=== PATIENT | male | born 1955 | race Caucasian/White ===

== ENCOUNTER 2018-05-02 09:37 | Outpatient (REF) | payer MEDICARE, SELFPAY ==
[2018-05-05 12:22] LABS: Testosterone, Free 2.18 ng/dL (3.67-13.9); Testosterone, Total 78 ng/dL (240-950)
== END 2018-05-02 09:57 ==
LOC: NCHCN 09:37
PROVIDERS: PCP Internal Medicine; Visit Provider Internal Medicine
DX: E23.0 Hypopituitarism (principal)
CPT/HCPCS: 84402; 84403

== ENCOUNTER 2018-06-27 15:44 | Outpatient (REF) | payer MEDICARE, SELFPAY ==
[2018-06-27 22:19] LABS: Potassium 3.6 mmol/L (3.5-5.1)
[2018-06-29 11:25] LABS: Hepatitis C Ab w Rflx HCV PCR Negative (NEGAT)
[2018-07-02 08:09] LABS: Testosterone, Total 175 ng/dL (240-950)
== END 2018-06-27 16:04 ==
LOC: NCHCN 15:44
PROVIDERS: PCP Internal Medicine; Visit Provider Internal Medicine
DX: I10 Essential (primary) hypertension (principal); Z11.59 Encounter for screening for other viral diseases; Z79.899 Other long term (current) drug therapy
CPT/HCPCS: 84403; 86803; 84132

== ENCOUNTER 2019-01-10 14:17 | Outpatient (REF) | payer MEDICARE, SELFPAY ==
[2019-01-10 21:24] LABS: HCT 38.2 % (40.0-50.0); Mean Corpuscular Hemoglobin 28.7 pg (27.0-33.0); Mean Corpuscular Volume 84.3 fL (80-95); Mean Platelet Volume 10.9 fL (8.0-11.0); Platelet Count 197 x1000/uL (130-400); RBC 4.53 m/cumm (4.50-6.00); RBC Distribution Width 13.3 % (11.8-14.1); White Blood Cell Count 5.82 k/cumm (4.4-10.8)
[2019-01-10 22:14] LABS: ALT 31 U/L (12-78); AST 21 U/L (15-37); Alkaline Phosphatase 76 U/L (46-116); Anion Gap 14.1 mmol/L (3-11); BUN 17 mg/dL (7-18); Bilirubin, Total 0.5 mg/dL (0.2-1.0); CO2 24.9 mmol/L (21.0-32.0); CREATININE 1.04 mg/dL (0.70-1.30); Chloride 101 mmol/L (98-107); Glucose 110 mg/dL (70-100); Potassium 3.8 mmol/L (3.5-5.1); Sodium 140 mmol/L (136-145); TSH 1.51 uIU/mL (0.358-3.74); Total Protein 7.1 g/dL (6.4-8.2); Vitamin B12 270 pg/mL (193-986)
[2019-01-10 22:34] LABS: Calcium 8.9 mg/dL (8.5-10.1)
== END 2019-01-10 14:37 ==
LOC: NCHCN 14:17
PROVIDERS: PCP Internal Medicine; Visit Provider Internal Medicine
DX: I10 Essential (primary) hypertension (principal); R53.83 Other fatigue; Z98.84 Bariatric surgery status
CPT/HCPCS: 80053; 85027; 82607; 84443

== ENCOUNTER 2019-02-19 16:06 | Emergency (ER) | payer MEDICARE, SELFPAY ==
[2019-02-19 16:17] VITALS: BP 124/59; PULSE 60; RESP 16; TEMP 36.8; O2SAT 96
--- NOTE | 2019-02-19 16:29 | DI.RAD_ITS ---
SYMPTOM/DIAGNOSIS: DISTAL THIRD PUNCTURE WOUND LEFT LEG: No foreign body is demonstrated. No localized soft tissue mass is seen. There is no evidence of a fracture or dislocation. The patient is status post TKA.
--- NOTE | 2019-02-19 16:30 | ED.GENADUL_ITS ---
Discharge Plan Disposition Patient Disposition: HOME Condition: Improving Discharge Details Chief Complaint: Laceration Clinical Impression: Puncture wound of left lower leg Primary Care Provider: Shankar Saleh ED Provider: Malik Franks Home Meds and New Rx's Prescriptions: New cephalexin 500 mg tablet 500 mg PO TID Qty: 21 RF: 0 Continued ibuprofen 200 MG tablet 800 mg PO AM RF: 0 terazosin 2 MG capsule 2 mg PO HS RF: 0 losartan 100 MG tablet 100 mg PO DAILY RF: 0 fluticasone propionate [Flonase Allergy Relief] 9.9 ML spray,suspension 9.9 ml NS DAILY RF: 0 metformin [Fortamet] 500 MG tablet extended release 24hr 500 mg PO DAILY RF: 0 DIPROLENE LOTION 0.05 % Topical PRN RF: 0 Discharge Instructions Instructions: Puncture Wound (ED) Additional Instructions: The dressing in place for approximately 48 hours. Then once daily soap and water cleanse, pat dry, replace dressing. Take antibiotics as prescribed. Elevate the leg to reduce pain and swelling. May use Tylenol if needed for discomfort. Return for fever, redness, foul-smelling discharge from the wound or any other acute concern Medical Decision Making 63-year-old male presents following puncture wound to the left lower extremity well working in the [employer]. He is a diabetic, otherwise healthy and tetanus is up-to-date. Wound irrigated, explored in a bloodless field without evidence of foreign body. Referred for x-ray which does not reveal fracture. There is a medial, mid tibia foreign body that is not match the patient's clinical presentation for which he explains is from his youth. No indication for incision and drainage which I discussed with he and his . Will place on a course of cephalexin. He understands homecare, follow-up, return precautions HPI General Mode of arrival: ambulatory . Date/Time Provider Initiated Documentation: 02/19/19 16:08 . Limitations to Documentation: no limitations . Information obtained by: patient and family . History of Present Illness 63 year old M presents to the emergency department with the chief complaint of Lef t lower extremity puncture wound., described as moderate, Quality is described as dull and constant, and is localized to the left. Patient reports no radiation. Patient started experiencing this hour(s) and it has been constant. No relieving factors improve symptom(s), No exacerbating factors reported . Patient notes no other symptoms. and other (No numbness or tingling at time of exam). Patient did receive the following treatments prior to arrival, none Related Data Home Medications Medication Instructions Recorded Confirmed Diprolene Lotion 0.05 % TOPICAL PRN 09/06/15 02/19/19 fluticasone propionate [Flonase 9.9 ml NS DAILY 09/06/15 02/19/19 Allergy Relief] ibuprofen 800 mg PO AM tab-cap 09/06/15 02/19/19 losartan 100 mg PO DAILY tab-cap 09/06/15 02/19/19 metformin [Fortamet] 500 mg PO DAILY tab-cap 09/06/15 02/19/19 terazosin 2 mg PO HS tab-cap 09/06/15 02/19/19 cephalexin 500 mg PO TID #21 tab 02/19/19 Previous Rx's Medication Instructions Recorded cephalexin 500 mg PO TID #21 tab 02/19/19 Allergies Allergy/AdvReac Type Severity Reaction Status Date / Time pravastatin Allergy Intermediate Unverified 02/19/19 16:20 lisinopril Allergy Mild Unverified 02/19/19 16:20 aspirin Allergy Unknown Unverified 02/19/19 16:20 General Stated Complaint: Laceration NATHAN: 3 Review of Systems Review of Systems No numbness or tingling, no weakness. Tetanus up-to-date 2011. Otherwise well. 6 systems reviewed and negative [facility] Medical History Carpal tunnel syndrome on both sides Diabetes mellitus Hypertension Obesity Osteoarthritis of neck Surgical History Gastric Bypass Social History Smoking/Tobacco Use Status: Never Drug use: Never Exam Narrative Exam Narrative: GEN: awake, alert, oriented 3. Pleasant, well groomed, interactive. HEAD: Normocephalic, atraumatic ENT: Mucous membranes moist, oropharynx unremarkable, External ear exam unremarkable EYES: PERRL, EOMI NECK: Full ROM, no SEVERINO, no menigismus CHEST/RESP: Nontender, clear to auscultation bilateral, no wheeze/rhonchi/rales CARDIOVASCULAR: RRR, no murmur, rub scar. 2+ Rad pulse bilateral EXT: Full ROM, no edema, no rash. Left distal third anterior tibia with 5 mm puncture wound. No foreign body seen. Distal sensation, motor, vascular intact with 2+ DP Neuro: Grossly normal neurologic exam, conversant, interactive. Psych: Speech fluent, thoughts congruent, affect normal Course Vital Signs Temperature 36.8 C 02/19/19 16:17 Pulse 60 02/19/19 16:17 Respiratory Rate 16 02/19/19 16:17 Blood Pressure 124/59 L 02/19/19 16:17 Pulse Oximetry 96 02/19/19 16:17 Temperature 36.8 C 02/19/19 16:17 Temperature Source Skin 02/19/19 16:17 Pulse 60 02/19/19 16:17 Respiratory Rate 16 02/19/19 16:17 Respiratory Effort Non-Labored 02/19/19 16:17 Blood Pressure 124/59 L 02/19/19 16:17 Blood Pressure Position Sitting 02/19/19 16:17 Pulse Oximetry 96 02/19/19 16:17 Oxygen Delivery Method Room Air 02/19/19 16:17 Oxygen Flow Rate 0 02/19/19 16:17 Pain Level 4 02/19/19 16:17
--- NOTE | 2019-02-19 17:12 | DI.VRAD_ITS ---
EXAM: XR Left Tibia and Fibula EXAM DATE/TIME: 02/19/2019 4:31 PM CLINICAL HISTORY: 63 years old, male; Pain; Left; Patient HX: Puncture wound from a stick, distal lower leg. TECHNIQUE: Imaging protocol: XR Left tibia and fibula. Views: 2 views. COMPARISON: No relevant prior studies available. FINDINGS: Bones/joints: There is a total knee per se cyst without dislocation. There is no acute fracture or dislocation. Soft tissues: There is no radiopaque foreign body.There is no gas in the soft tissue. Vasculature: There are multiple phleboliths throughout the lower leg. IMPRESSION: No evidence of radiopaque foreign body or abscess. Dictated and Authenticated by: Timi Caputo MD. Ordering:HITESH Gan MD
== END 2019-02-19 17:00 | disposition home or self-care (01) ==
PROVIDERS: Emergency Provider Emergency Medicine; PCP Internal Medicine
DX: S81.832A Puncture wound without foreign body, left lower leg, initial encounter (principal); I10 Essential (primary) hypertension; E11.9 Type 2 diabetes mellitus without complications; Z79.84 Long term (current) use of oral hypoglycemic drugs
CPT/HCPCS: 99283; 73590

== ENCOUNTER 2020-01-20 08:29 | Outpatient (REF) | payer OTHER, SELFPAY ==
[2020-01-20 20:41] LABS: HCT 38.4 % (40.0-50.0); HGB 13.1 g/dL (13.5-17.5); Mean Corp. HGB Concentration 34.1 g/dL (32.0-36.0); Mean Corpuscular Hemoglobin 29.1 pg (27.0-33.0); Mean Corpuscular Volume 85.3 fL (80-95); Mean Platelet Volume 10.6 fL (8.0-11.0); Platelet Count 231 x1000/uL (130-400); RBC Distribution Width 12.8 % (11.8-14.1)
[2020-01-20 21:16] LABS: Anion Gap 9.1 mmol/L (3-11); BUN 19 mg/dL (7-18); CO2 28.9 mmol/L (21.0-32.0); CREATININE 1.16 mg/dL (0.70-1.30); Calcium 8.7 mg/dL (8.5-10.1); Calculated LDL 107 mg/dL (<100); Chloride 102 mmol/L (98-107); Cholesterol 162 mg/dL (<200); Glucose 130 mg/dL (74-106); HDL Cholesterol 36 mg/dL (40-60); Magnesium 2.2 mg/dL (1.8-2.4); Potassium 4.3 mmol/L (3.5-5.1); Sodium 140 mmol/L (136-145); Triglyceride 98 mg/dL (<150)
[2020-01-20 22:21] LABS: Hemoglobin A1C 6.5 % (3.8-5.6)
== END 2020-01-20 08:49 ==
LOC: NCHCN 08:29
PROVIDERS: PCP Internal Medicine; Visit Provider Internal Medicine
DX: I10 Essential (primary) hypertension (principal); E11.9 Type 2 diabetes mellitus without complications; E78.6 Lipoprotein deficiency; E66.9 Obesity, unspecified
CPT/HCPCS: 80048; 80061; 85027; 83036; 83735

== ENCOUNTER 2020-03-01 14:18 | Outpatient (REF) | payer OTHER, SELFPAY ==
[2020-03-08 12:08] LABS: Testosterone, Free 4.58 ng/dL (3.67-13.9); Testosterone, Total 183 ng/dL (240-950)
== END 2020-03-01 14:38 ==
LOC: NCHCN 14:18
PROVIDERS: PCP Internal Medicine; Visit Provider Internal Medicine
DX: E23.0 Hypopituitarism (principal)
CPT/HCPCS: 84402; 84403

== ENCOUNTER 2020-04-14 13:35 | Outpatient (CLI) | payer OTHER, SELFPAY ==
--- NOTE | 2020-04-14 13:57 | DI.RAD_ITS ---
EXAM: XR CERVICAL SPINE COMP 4-5V CLINICAL HISTORY: LT CERVICAL RADICULOPATHY, M54.12. TECHNIQUE: 2D digital imaging was performed. COMPARISON: No exams were available for comparison FINDINGS: The odontoid is intact. The lateral masses are well aligned. There is straightening of the normal c ervical lordosis. Disc space narrowing is seen at C5-6 and C6-C7. There are endplate osteophytes fr om C3-4 through C6-C7. Degenerative changes of the facets are noted. Moderate neural foraminal narr owing is seen on the right at C3-4 through C5-C6. Moderate narrowing is seen on the left at C3-4, C5 -C6 and C6-C7. No acute fracture or subluxation. The prevertebral soft tissues are unremarkable. T he lung apices are clear. Vascular calcifications are seen in the soft tissues. IMPRESSION: Moderate cervical spondylosis. DATA REPOSITORY: RADIATION DOSE DELIVERED:
== END 2020-04-14 13:55 ==
PROVIDERS: PCP Internal Medicine; Visit Provider Internal Medicine
DX: M47.22 Other spondylosis with radiculopathy, cervical region (principal)
CPT/HCPCS: 72050

== ENCOUNTER 2020-06-25 22:16 | Outpatient (REF) | payer OTHER, SELFPAY ==
[2020-06-29 10:13] LABS: COVID-19 RT-PCR Result NEGATIVE (Negative)
== END 2020-06-25 22:36 ==
LOC: NCHCN 22:16
PROVIDERS: PCP Internal Medicine; Visit Provider Internal Medicine
DX: Z20.828 Contact with and (suspected) exposure to other viral communicable diseases (principal)
CPT/HCPCS: U0003

== ENCOUNTER 2020-07-05 21:17 | Outpatient (REF) | payer OTHER, SELFPAY ==
[2020-07-05 21:23] LABS: Abs Immature Grans 0.01 10^3/uL (0.0-0.06); Absolute Basophil Count 0.05 10^3/uL (0.0-0.2); Absolute Eosinophil Count 0.17 10^3/uL (0.0-0.7); Absolute Lymphocyte Count 1.85 10^3/uL (1.2-3.4); Absolute Monocyte Count 0.49 10^3/uL (0.1-0.8); Absolute Neutrophil Count 4.37 10^3/uL (1.2-6.7); Basophils % 0.7; Eosinophils % 2.4; HCT 40.4 % (40.0-50.0); HGB 13.4 g/dL (13.5-17.5); Immature Grans % 0.1; Lymphocytes % 26.7; MCHC 33.2 % (32.0-36.0); MCV 81.5 fL (80-95); MPV 10.5 fL (8.0-11.0); Monocytes % 7.1; Nucleated RBC 0 %; Platelet Count 226 10^3/uL (130-400); RBC 4.96 10^6/uL (4.36-5.78); RDW 12.5 % (11.8-14.1); RDW-SD 36.4 fL; WBC 6.94 10^3/uL (4.4-10.8)
[2020-07-05 21:50] LABS: ALT 34 U/L (16-63); AST 22 U/L (15-37); Albumin 4.2 g/dL (3.4-5.0); Alkaline Phosphatase 71 U/L (46-116); Anion Gap 10.9 mmol/L (3-11); BUN 14 mg/dL (7-18); Bilirubin, Total 0.5 mg/dL (0.2-1.0); CO2 25.1 mmol/L (21.0-32.0); CREATININE 1.18 mg/dL (0.70-1.30); Calcium 8.8 mg/dL (8.5-10.1); Chloride 101 mmol/L (98-107); Glucose 131 mg/dL (74-106); Sodium 137 mmol/L (136-145); Total Protein 7.4 g/dL (6.4-8.2)
== END 2020-07-05 21:37 ==
LOC: NCHCN 21:17
PROVIDERS: PCP Internal Medicine; Visit Provider Internal Medicine
DX: R10.9 Unspecified abdominal pain (principal)
CPT/HCPCS: 80053; 85025

== ENCOUNTER → 2020-08-06 09:32 | Outpatient (REF) | payer OTHER, SELFPAY ==
[2020-08-11 10:58] LABS: Testosterone, Free 7.26 ng/dL (3.67-13.9); Testosterone, Total 191 ng/dL (240-950)
== END ==
LOC: NCHCN 09:32
PROVIDERS: PCP Internal Medicine; Visit Provider Internal Medicine
DX: E23.0 Hypopituitarism (principal)
CPT/HCPCS: 84402; 84403

== ENCOUNTER 2020-09-28 20:08 | Outpatient (REF) | payer OTHER, SELFPAY ==
[2020-10-01 15:11] LABS: Testosterone, Total 406 ng/dL (240-950)
== END 2020-09-28 20:09 | disposition home or self-care (01) ==
LOC: NCHCN 20:08
PROVIDERS: PCP Internal Medicine; Visit Provider Internal Medicine
DX: E23.0 Hypopituitarism (principal)
CPT/HCPCS: 84403

== ENCOUNTER 2020-10-15 03:50 | Outpatient (CLI) | payer OTHER, SELFPAY ==
[2020-10-15] MEDS: Barium Sulfate 60% W/V 355 ML BTL PO ×2 (10:20→10:56)
--- NOTE | 2020-10-15 10:20 | DI.RAD_ITS ---
EXAM: RF BARIUM SWALLOW CLINICAL HISTORY: DYSPHAGIA,R13.13 TECHNIQUE: COMPARISON: CR RF UGI SM BOWEL SERIES from 10/15/2020 FINDINGS: Preliminary films of the chest and neck show no specific abnormality. Barium was ingested and showed grossly normal esophageal motility except for few tertiary contraction s of the esophagus. Esophageal mucosa appears intact. No esophageal stricture. The patient has reportedly had a gastric bypass procedure. Small bowel fold pattern is unremarkable, slight nonspecific dilatation of portions of the duodenum small bowel shows essentially normal mucos al pattern to the level of the ileocecal valve. No evidence of obstruction. IMPRESSION: Negative barium swallow, upper GI series, and small-bowel follow-through in a patient who is status p ost gastric bypass procedure. RADIATION DOSE DELIVERED: Total DLP
== END 2020-10-15 04:10 ==
PROVIDERS: PCP Internal Medicine; Visit Provider Internal Medicine
DX: K22.4 Dyskinesia of esophagus (principal); R13.13 Dysphagia, pharyngeal phase; Z98.84 Bariatric surgery status
CPT/HCPCS: 74248; 74221; 74246

== ENCOUNTER 2020-11-15 09:36 | Outpatient (CLI) | payer OTHER, SELFPAY ==
--- NOTE | 2020-11-15 13:24 | DI.RAD_ITS ---
EXAM: XR RIBS LT W PA LAT CHEST CLINICAL HISTORY: RIB PAIN LT SIDED, R07.81 TECHNIQUE: 2D digital imaging was performed. COMPARISON: CR RF BARIUM SWALLOW from 10/15/2020 FINDINGS: There is a fracture of the left 10th rib. No other rib fractures identified. No pneumothorax. Lung s are clear. Heart size normal. Mediastinum not widened. IMPRESSION: 1. There is a minimally displaced fracture of the left 10th rib. 2. No ipsilateral lung nor pleural abnormality evident. No pneumothorax. DATA REPOSITORY: RADIATION DOSE DELIVERED:
== END 2020-11-15 09:56 ==
PROVIDERS: PCP Internal Medicine; Visit Provider Internal Medicine
DX: R07.81 Pleurodynia (principal); S22.32XA Fracture of one rib, left side, initial encounter for closed fracture
CPT/HCPCS: 71046; 71100

== ENCOUNTER 2021-03-31 16:04 | Outpatient (REF) | payer OTHER, SELFPAY ==
[2021-04-01 15:29] LABS: COVID-19 RT-PCR UVMMC Result Negative (Negative)
== END 2021-03-31 16:05 | disposition home or self-care (01) ==
LOC: NCHCN 16:04
PROVIDERS: PCP Internal Medicine; Visit Provider Internal Medicine
DX: Z20.822 Contact with and (suspected) exposure to COVID-19 (principal)
CPT/HCPCS: U0003

== ENCOUNTER 2021-08-09 14:56 | Outpatient (REF) | payer OTHER, SELFPAY ==
[2021-08-09 22:17] LABS: HCT 38.5 % (40.0-50.0); HGB 12.5 g/dL (13.5-17.5); MCH 25.6 pg (27.0-33.0); MCHC 32.5 % (32.0-36.0); MCV 78.9 fL (80-95); MPV 10.4 fL (8.0-11.0); Platelet Count 207 10^3/uL (130-400); RBC 4.88 10^6/uL (4.36-5.78); RDW 13.7 % (11.8-14.1); RDW-SD 39.3 fL; WBC 7.55 10^3/uL (4.4-10.8)
[2021-08-09 22:36] LABS: Anion Gap 9.8 mmol/L (3-11); BUN 25 mg/dL (7-18); CO2 26.2 mmol/L (21.0-32.0); CREATININE 1.3 mg/dL (0.70-1.30); Calcium 9.1 mg/dL (8.5-10.1); Chloride 101 mmol/L (98-107); Estimated GFR 55.58 (mL/min/1.73m2); Glucose 150 mg/dL (74-106); NT-proBNP 60 pg/mL (<300); Sodium 137 mmol/L (136-145)
[2021-08-09 22:43] LABS: Hemoglobin A1C 7.4 % (<5.7)
[2021-08-10 11:18] LABS: Iron 60 ug/dL (65-175); Total Iron Binding Capacity 371 ug/dL (250-450)
== END 2021-08-09 14:57 | disposition home or self-care (01) ==
LOC: NCHCN 14:56
PROVIDERS: PCP Internal Medicine; Visit Provider Internal Medicine
DX: E11.9 Type 2 diabetes mellitus without complications (principal); R06.09 Other forms of dyspnea; D50.9 Iron deficiency anemia, unspecified; I10 Essential (primary) hypertension; G47.30 Sleep apnea, unspecified; R05.3 Chronic cough
CPT/HCPCS: 80048; 85027; 83036; 83540; 83550; 83880

== ENCOUNTER 2021-08-12 00:40 | Outpatient (CLI) | payer MEDICARE, SELFPAY ==
--- NOTE | 2021-08-12 09:15 | DI.RAD_ITS ---
Exam(s) XR CHEST 2V PA LATERAL EXAM: XR CHEST 2V PA LATERAL CLINICAL HISTORY: CHRONIC COUGH, R05 TECHNIQUE: 2D digital imaging was performed. COMPARISON: CR XR RIBS LT W PA LAT CHEST from 11/15/2020 FINDINGS: MEDIASTINUM: Normal. HEART: Normal. PULMONARY VASCULATURE: Normal. LUNGS: Clear. PLEURAL SPACE: No pleural effusion or pneumothorax. BONE:Unremarkable for age. IMPRESSION: No acute abnormality. DATA REPOSITORY: RADIATION DOSE DELIVERED:
== END 2021-08-12 01:00 ==
PROVIDERS: PCP Internal Medicine; Visit Provider Internal Medicine
DX: R05.8 Other specified cough (principal)
CPT/HCPCS: 71046

== ENCOUNTER 2021-11-22 11:35 | Emergency (ER) | payer MEDICARE, SELFPAY ==
[2021-11-22 11:40] VITALS: BP 160/75; PULSE 70; RESP 17; TEMP 36.9; O2SAT 97
--- NOTE | 2021-11-22 11:49 | ED.GENADUL_ITS ---
Discharge Plan Disposition Patient Disposition: HOME Condition: Stable Discharge Details Clinical Impression: Pain and swelling of eyelid of right eye Primary Care Provider: Shankar Saleh ED Provider: Christy Ambrose Home Meds and New Rx's Prescriptions: Continued ibuprofen 200 MG tablet 800 mg PO AM 0RF terazosin 2 MG capsule 2 mg PO HS 0RF Label Comments: -PT STATES TAKING 2 TABS IN AM AND 1 TAB PM--DAVID GALVAN losartan 100 MG tablet 100 mg PO DAILY 0RF fluticasone propionate [Flonase Allergy Relief] 9.9 ML spray,suspension 9.9 ml NS DAILY 0RF metformin [Fortamet] 500 MG tablet extended release 24hr 800 mg PO DAILY 0RF Label Comments: 05/18/17-PT STATES NOT CURRENTLY TAKING--DAVID GALVAN DIPROLENE LOTION 0.05 % Topical PRN 0RF pantoprazole 40 mg tablet,delayed release (DR/EC) 40 mg PO DAILY 0RF Ozempic 0.25 mg or 0.5 mg(2 mg/1.5 mL) pen injector 0.25 mg SUBCUT QWEEK 0RF Label Comments: Inject 0.25 mg subcutaneously once a week Discharge Instructions Instructions: Cellulitis (ED), Blepharitis (ED) Additional Instructions: You may be developing an infection of the skin around your eye. It is recommended that you apply the erythromycin ointment within and around your eye 3 times daily for the next 7 days. Apply cool compresses to the eye several times daily for 20 minutes at a time. Called [facility] to schedule a follow-up appointment for reevaluation within the next few days. Return immediately to the emergency department if you develop any worsening or new concerning symptoms. Referrals: [facility] [Outside] Discharge Data Discharge Physician: Christy Ambrose Medical Decision Making 66-year-old male who presents with right eye discomfort, and right upper and lower eyelid swelling and redness for the past few days. Unknown injury. Vitals within normal limits. Patient appears comfortable and nontoxic. He has right upper and lower eyelid edema and erythema which is worse on the upper eyelid. He has minimal erythema and edema noted medial to the medial canthus. Fluorescein staining negative for corneal abrasion. No obvious foreign body noted on exam and with eyelid eversion. There appears to be most tenderness to palpation to the area of erythema and edema of the skin medial to the medial canthus and the upper eyelid. He has no significant pain with EOMI so do not suspect periorbital or orbital cellulitis. Will cover with topical antibiotic erythromycin ointment to use within the eye and on the outside of the skin. Will place patient on care management list to follow-up with [facility] eye care this week. Patient is advised to apply cool compresses to the area several times daily. Advised to avoid touching the eye. Advised to return here immediately if he develops any fever, worsening swelling, redness or pain with eye movement. Medical Records Medical records reviewed: Yes I reviewed the patient's medical records. HPI General Mode of arrival: ambulatory . Date/Time Provider Initiated Documentation: 11/22/21 11:47 . Limitations to Documentation: no limitations . Information obtained by: patient . HPI Narrative: Patient is a 66-year-old male who presents to the ED with complaint of right eye irritation for the past 2 days now with right eyelid swelling and redness. Patient states he awoke with the symptoms a few days ago. Patient states he is unsure if he got anything in his eye. He does admit to actual discomfort of the eye itself when touching his eyelid and in the skin medial to his eye when looking inward. He admits to occasional blurry vision but denies any fever, headache, dizziness, nausea or vomiting. Related Data Home Medications Medication Instructions Recorded Confirmed Diprolene Lotion 0.05 % TOPICAL PRN 09/06/15 02/19/19 fluticasone propionate 50 9.9 ml NS DAILY 09/06/15 02/19/19 mcg/actuation nasal spray,suspension (Flonase Allergy Relief) ibuprofen 200 mg tablet 800 mg PO AM tab-cap 09/06/15 02/19/19 losartan 100 mg tablet 100 mg PO DAILY tab-cap 09/06/15 02/19/19 metformin 500 mg tablet,extended 800 mg PO DAILY tab-cap 09/06/15 02/19/19 release 24hr (Fortamet) terazosin 2 mg capsule 2 mg PO HS tab-cap 09/06/15 02/19/19 pantoprazole 40 mg tablet,delayed 40 mg PO DAILY 11/22/21 11/22/21 release semaglutide (Ozempic) 0.25 mg SUBCUT QWEEK 11/22/21 11/22/21 Allergies Allergy/AdvReac Type Severity Reaction Status Date / Time pravastatin Allergy Intermediate Unverified 11/22/21 11:44 lisinopril Allergy Mild Unverified 11/22/21 11:44 aspirin Allergy Unknown Unverified 11/22/21 11:44 General Stated Complaint: EyeProblem NATHAN: 4 Review of Systems All systems reviewed & are unremarkable except as noted in HPI and below Constitutional Constitutional: Reports as per HPI, Denies chills, Denies excessive sweating, Denies fatigue, Denies fever(s) and Denies headache(s) Eyes Eyes: Reports blurry vision, Reports irritation and Reports eye pain ENT Ears, Nose, Mouth, and Throat: Denies dizziness, Denies headache(s), Denies sore throat and Denies throat swelling Cardiovascular Cardiovascular: Denies chest pain and Denies dyspnea Respiratory Respiratory: Denies cough and Denies dyspnea Gastrointestinal Gastrointestinal: Denies abdominal pain, Denies diarrhea, Denies nausea and Denies vomiting Genitourinary Genitourinary: Denies hematuria and Denies dysuria Musculoskeletal Musculoskeletal: Denies back pain and Denies numbness Integumentary/Breasts Skin/Breast: Denies lesions and Denies rash Neurologic Neurologic: Denies behavioral changes, Denies confusion, Denies dizziness, Denies headache(s), Denies localized weakness and Denies numbness Psychiatric Psychiatric: Denies behavioral changes, Denies confusion and Denies depression Endocrine Endocrine: Denies excessive sweating and Denies fatigue Hematologic/Lymphatic Hematologic/Lymphatic: Denies easy bruising and Denies lymphadenopathy Allergic/Immunologic Allergic/Immunologic: Denies throat swelling PFSH All Active Problems (Updated 11/22/21 @ 12:48 by Christy Ambrose DO) Pain and swelling of eyelid of right eye (Acute) Medical History (Updated 11/22/21 @ 12:48 by Christy Ambrose DO) Carpal tunnel syndrome on both sides Diabetes mellitus Hypertension Obesity Osteoarthritis of neck Surgical History Gastric Bypass Social History Smoking/Tobacco Use Status: Never Smoking risk assessment performed?: Yes Alcohol Intake: never Drug use: Never Substance use type: does not use Do you feel safe at home: Yes Do you feel safe in your relationship?: Yes Exam Const General: cooperative and no acute distress Orientation: alert, awake and oriented x3 HENMT Head: normal to inspection Ears: hearing grossly normal bilaterally and external ears normal General nose exam: external nose normal Face and sinus: normal facial exam Eyes General: appearance normal, both eyes and all related structures Pupils: PERRL EOM: EOM intact bilaterally Other: Right upper and lower eyelid mild to moderate edema and erythema, worse on the upper eyelid. There is erythema and edema noted just medial to the medial canthus. There is no significant tearing or yellow discharge. No significant conjunctival injection or obvious foreign body. Neck Neck: normal visual inspection Lymphatic: no lymphadenopathy noted Chest Chest: normal inspection of the chest Resp Effort & Inspection: normal respiratory effort and able to speak in complete sentences Auscultation: clear to auscultation bilaterally Cardio Rate: regular rate Rhythm: regular rhythm GI Inspection: normal to inspection Palpation: soft, not firm, no guarding, no hepatosplenomegaly, no masses and nontender Auscultation: normal bowel sounds Back/Spine/Pelvis Back: no CVA tenderness Skin General skin exam: no rashes or lesions noted Neuro General: patient alert and patient awake Cognition: normal cognition Speech: speech normal Gait: normal gait Motor: muscle tone normal throughout Sensory Exam: no sensory deficits noted Extrem General: normal to inspection, full ROM and capillary refill normal Psych Appearance: grossly normal Mental Status: mental status grossly normal Speech and Movement: speech and movement normal Affect: normal affect Thought Process: normal Course Vital Signs Vital signs: Vital Signs Temperature 98.4 F 11/22/21 11:40 Pulse 70 11/22/21 11:40 Respiratory Rate 17 11/22/21 11:40 Blood Pressure 160/75 H 11/22/21 11:40 Pulse Oximetry 97 11/22/21 11:40 Temperature 98.4 F 11/22/21 11:40 Temperature Source Temporal Artery Scan 11/22/21 11:40 Pulse 70 11/22/21 11:40 Respiratory Rate 17 11/22/21 11:40 Respiratory Effort Non-Labored 11/22/21 11:43 Blood Pressure 160/75 H 11/22/21 11:40 Blood Pressure Position Sitting 11/22/21 11:40 Pulse Oximetry 97 11/22/21 11:40 Oxygen Delivery Method Room Air 11/22/21 11:40 Oxygen Flow Rate 0 11/22/21 11:40 Pain Level 1 11/22/21 11:40
[2021-11-22] MEDS: Fluorescein STRIPS 100/BOX 1 MG (12:48)
[2021-11-22] MEDS: Tetracaine 0.5% 4 ML BTL (12:48)
[2021-11-22] MEDS: Erythromycin Ophth Oint 3.5 GM TUBE OU (13:00)
== END 2021-11-22 13:00 | disposition home or self-care (01) ==
PROVIDERS: Emergency Provider Physician Assistant; PCP Internal Medicine
DX: H57.11 Ocular pain, right eye (principal); H57.89 Other specified disorders of eye and adnexa
CPT/HCPCS: 99283

== ENCOUNTER 2021-12-15 16:37 | Outpatient (CLI) | payer MEDICARE, SELFPAY ==
--- NOTE | 2021-12-15 14:50 | DI.RAD_ITS ---
Exam(s) XR HIP RT COMPLETE AP PELVIS EXAM: XR HIP RT COMPLETE AP PELVIS CLINICAL HISTORY: OSTEOARTHRITIS RT HIP M16.11. TECHNIQUE: 2D digital imaging was performed of the right hip. Three images were obtained. AP pelvis and lateral right hip views were obtained. COMPARISON: CR RF UGI SM BOWEL SERIES from 10/15/2020 FINDINGS: BONES: No acute fracture is present. No bony destructive lesion is seen. JOINTS: No dislocation present. Mild degenerative changes are seen in the right hip with joint space narrowing subchondral cyst and acetabular spurring. SOFT TISSUE: Postsurgical changes are seen in the abdomen and pelvis. IMPRESSION: Mild degenerative changes of the right hip. DATA REPOSITORY: RADIATION DOSE DELIVERED:
== END 2021-12-15 16:57 ==
LOC: DI 16:39
PROVIDERS: PCP Internal Medicine; Visit Provider Internal Medicine
DX: M25.551 Pain in right hip (principal); M16.11 Unilateral primary osteoarthritis, right hip
CPT/HCPCS: 73502

== ENCOUNTER → 2022-02-06 10:11 | Outpatient (BNVA) | payer MEDICARE, SELFPAY | PROVIDERS: PCP Internal Medicine; Referring Provider Internal Medicine; Visit Provider Student in an Organized Health Care Education/Training Program | DX: M70.61 Trochanteric bursitis, right hip (principal); M16.11 Unilateral primary osteoarthritis, right hip | CPT/HCPCS: 99214 ==

== ENCOUNTER 2022-02-09 00:35 | Outpatient (CLI) | payer MEDICARE, SELFPAY ==
--- NOTE | 2022-02-09 08:15 | DI.RAD_ITS ---
Exam(s) RF JOINT INJECTION FLUORO GUID EXAM: RF JOINT INJECTION FLUORO GUID CLINICAL HISTORY: R HIP INJ UNDER FLUORO, PRIMARY OA RT HIP, TROCHANTERIC BURSITIS TECHNIQUE: Fluoroscopy provided. Radiologist not present. CONTRAST MATERIAL: None COMPARISON: No exams were available for comparison FINDINGS: Fluoroscopy was provided for therapeutic right hip injection. Submitted image(s) reveal intra-articular position of the needle Please refer to the procedure report for complete details. Cumulative Dose: Jamesr=18.9 mGy IMPRESSION: RADIATION DOSE DELIVERED:
[2022-02-09] MEDS: Bupivacaine 0.5% Pres-Free 30 ML VIAL 5 ML IJ (14:38)
[2022-02-09] MEDS: methylPREDNISolone ACETATE 80 MG/ML VIAL IM (14:38)
[2022-02-09] MEDS: Omnipaque 300 MG/ML 10 ML BTL IJ (14:39)
--- NOTE | 2022-02-09 14:47 | W.PROCNOTE ---
Date of service: 02/09/22 Time of Service: 14:47 Procedure Note Date of procedure: 02/09/22 Procedure: Right Hip Injection with Fluoroscopic Guidance Surgeon/Proceduralist/Physician: Ernie Bocanegra Procedure Diagnosis: Right Hip Osteoarthritis Procedure Indications: Ed has had persistent pain of the RIGHT hip and groin. Noninvasive measures have been tried. To serve as both diagnostic and therapeutic, an injection under fluoroscopy was recommended. I had discussed the risks of the procedure and the patient elected to proceed. Procedure Description: Ed was greeted in the flouroscopy room. The correct side was identified and the consent was reviewed with the patient and signed. The patient was then placed in the supine position on the fluoroscopy table. The RIGHT hip was then prepped with Chloraprep. The anterolateral injection starting point was identiifed by bony landmarks and fluoroscopy. The skin and soft tissue in the tract of the injection was anesthetized with 1% Lidocaine. A spinal needle was then inserted deep into the hip joint at the level of the lateral femoral neck under fluoroscopic guidance. A small amount of Omnipaque solution was injected to confirm intraarticular placement. Once confirmed, the hip was injected with 6cc of 0.5% Bupivicaine and 80mg of Depo-Medrol. A bandaid was placed on the injection site. The patient tolerated the procedure well.
== END 2022-02-09 00:55 ==
LOC: DI 00:35
PROVIDERS: PCP Internal Medicine; Visit Provider Student in an Organized Health Care Education/Training Program
DX: M16.11 Unilateral primary osteoarthritis, right hip (principal); M70.61 Trochanteric bursitis, right hip; M25.551 Pain in right hip
CPT/HCPCS: 20610; 77002; J1040

== ENCOUNTER 2022-05-01 15:02 | Outpatient (REF) | payer MEDICARE, SELFPAY ==
[2022-05-01 16:38] LABS: HCT 38.2 % (40.0-50.0); HGB 13.3 g/dL (13.5-17.5); MCH 29.4 pg (27.0-33.0); MCHC 34.8 % (32.0-36.0); MCV 84 fL (80-95); MPV 10.6 fL (8.0-11.0); Platelet Count 215 10^3/uL (130-400); RBC 4.53 10^6/uL (4.36-5.78); RDW 11.9 % (11.8-14.1); RDW-SD 36.1 fL; WBC 6.28 10^3/uL (4.4-10.8)
[2022-05-01 18:46] LABS: ALT 26 U/L (16-63); AST 18 U/L (15-37); Alkaline Phosphatase 70 U/L (46-116); Anion Gap 10.5 mmol/L (3-11); BUN 25 mg/dL (7-18); Bilirubin, Total 0.3 mg/dL (0.2-1.0); C-Reactive Protein 0.11 mg/dL (0.0-0.3); CO2 25.5 mmol/L (21.0-32.0); CREATININE 1.3 mg/dL (0.70-1.30); Calcium 8.8 mg/dL (8.5-10.1); Chloride 101 mmol/L (98-107); Estimated GFR 60.96 (mL/min/1.73m2); Glucose 83 mg/dL (74-106); Potassium 3.8 mmol/L (3.5-5.1); Sodium 137 mmol/L (136-145); Total Protein 7.6 g/dL (6.4-8.2)
== END 2022-05-01 15:03 | disposition home or self-care (01) ==
LOC: NCHCN 15:02
PROVIDERS: PCP Internal Medicine; Visit Provider Internal Medicine
DX: R10.9 Unspecified abdominal pain (principal); R68.81 Early satiety; K65.4 Sclerosing mesenteritis
CPT/HCPCS: 80053; 85027; 86140

== ENCOUNTER 2022-05-11 03:51 | Outpatient (CLI) | payer MEDICARE, SELFPAY ==
[2022-05-11 12:59] LABS: HCT 35.9 % (40.0-50.0); HGB 12.5 g/dL (13.5-17.5); MCH 29.6 pg (27.0-33.0); MCHC 34.8 % (32.0-36.0); MCV 85 fL (80-95); MPV 9.2 fL (8.0-11.0); Platelet Count 185 10^3/uL (130-400); RBC 4.23 10^6/uL (4.36-5.78); RDW 11.9 % (11.8-14.1); RDW-SD 36.2 fL; WBC 6.15 10^3/uL (4.4-10.8)
[2022-05-11 13:17] LABS: Anion Gap 11.9 mmol/L (3-11); BUN 28 mg/dL (7-18); CO2 24.1 mmol/L (21.0-32.0); CREATININE 1.5 mg/dL (0.70-1.30); Calcium 8.7 mg/dL (8.5-10.1); Chloride 102 mmol/L (98-107); Estimated GFR 51.35 (mL/min/1.73m2); Glucose 168 mg/dL (74-106); Potassium 3.7 mmol/L (3.5-5.1); Sodium 138 mmol/L (136-145)
== END 2022-05-11 03:52 | disposition home or self-care (01) ==
LOC: LBO 03:51
PROVIDERS: PCP Internal Medicine; Visit Provider Student in an Organized Health Care Education/Training Program
DX: M16.11 Unilateral primary osteoarthritis, right hip (principal)
CPT/HCPCS: 36415; 80048; 85027; 83036

== ENCOUNTER 2022-05-11 13:18 | Outpatient (CLI) | payer MEDICARE, SELFPAY ==
--- NOTE | 2022-05-11 12:45 | DI.RAD_ITS ---
Exam(s) XR PELVIS AP EXAM: XR PELVIS AP CLINICAL HISTORY: Right hip DJD TECHNIQUE: COMPARISON: CR XR HIP RT COMPLETE AP PELVIS from 12/15/2021 FINDINGS: Single AP view with template ball was obtained. There is moderate loss of the cartilaginous joint sp west of the right hip. There is subchondral sclerosis of the acetabulum on the right. Enthesophyte f ormation is noted on the greater trochanter of right femur. Mild DJD also noted involving left hip. IMPRESSION: Moderate DJD right hip RADIATION DOSE DELIVERED: Total DLP
== END 2022-05-11 13:19 | disposition home or self-care (01) ==
LOC: DIORS 13:18
PROVIDERS: PCP Internal Medicine; Referring Provider Internal Medicine; Visit Provider Physician Assistant
DX: M16.11 Unilateral primary osteoarthritis, right hip (principal); Z01.818 Encounter for other preprocedural examination
CPT/HCPCS: 72170

== ENCOUNTER 2022-05-19 00:39 | Outpatient (CLI) | payer MEDICARE, SELFPAY ==
[2022-05-19] MEDS: Barium Sulfate 2% W/V-Creamy Vanilla Smoothie 450 ML BTL PO (09:13)
--- NOTE | 2022-05-19 11:00 | DI.CT_ITS ---
Exam(s) CT CHEST/ABD/PEL W EXAM: CT CHEST/ABD/PEL W CLINICAL HISTORY: SCLEROSING MESENTERITIS, K65.4 TECHNIQUE: Imaging Protocol: Axial computed tomography images with coronal and sagittal reformatted images were created and reviewed CONTRAST MATERIAL: Intravenous: Omnipaque 350 contrast volume:100 mL Oral: Yes COMPARISON: CT ABD PELVIS WITH CONTRAST from 05/24/2016 FINDINGS: CHEST: Tracheobronchial tree: Patent where visualized. Pulmonary parenchyma: No consolidation or dominant measurable mass. No architectural distortion. Visualized thyroid gland: Unremarkable. Mediastinum and Kristan: No dominant adenopathy or fluid collection. The esophagus is unremarkable. Pleura: No effusion or pneumothorax. Heart: The heart is not dilated. Moderate coronary artery calcification is present. No pericardial e ffusion. Pulmonary arteries: No central pulmonary embolus is seen. The segmental and subsegmental pulmonary a rteries are inadequately opacified for evaluation for pulmonary emboli. Aorta: Thoracic aorta non-dilated. Atherosclerosis. Lymph nodes: Within normal limits. Soft tissues: Unremarkable. Bones:Within normal limits for the patient's age. There is an old healed left rib fracture. ABDOMEN: Liver: Normal density. No measurable mass. Portal, Superior Mesenteric, and Splenic Veins: Unremarkable. Gallbladder and Biliary Tract: No radiodense calculus or dilation. Pancreas: Normal density, no abnormal calcifications or inflammatory process. Spleen: Normal. Adrenals: No masses seen. Kidneys: Normal size, contour and axis. No radiodense stones or obstructive uropathy. No masses seen. Abdominal Aorta: Abdominal portion non-dilated. Mild atherosclerosis. Bowel: No obstruction or bowel wall thickening. No evidence of appendicitis. Postsurgical changes ar e seen at the gastroesophageal junction. Peritoneal Cavity: No ascites. There is very mild increased attenuation in the mesentery. No mesent ab mass is seen. No free air. Lymph Nodes: Within normal limits. Bones: Within normal limits for the patient's age. Soft Tissues: There is a small fat containing right inguinal hernia. PELVIS: Bladder: Symmetric distention, no gross wall thickening. Reproductive Organs: Unremarkable as visualized. Lymph Nodes: Within normal limits. Bones: Within normal limits. IMPRESSION: 1. Mild indy mesentery. No discrete mass or adenopathy is seen. The findings are nonspecific. But can be seen with inflammation/infection, edema or fibrosis. 2. No acute pulmonary process. RADIATION DOSE DELIVERED: 1,540.49mGy.cm Total DLP DATA REPOSITORY: All CT scans at this facility are submitted to the National Radiology Data Registry (NRDR) Dose Index Registry (DIR) with the [employer] (A[employer]). RADIATION OPTIMIZATION: All CT scans at this facility use at least one of these dose optimization te chniques: automated exposure control; mA and/or kV adjustment per patient size (includes targeted exa ms where dose is matched to clinical indication); or iterative reconstruction.
[2022-05-19] MEDS: Omnipaque 350 MG/ML 100 ML BTL IJ (11:46)
== END 2022-05-19 00:59 ==
LOC: DI 00:39
PROVIDERS: PCP Internal Medicine; Visit Provider Internal Medicine
DX: K65.4 Sclerosing mesenteritis (principal)
CPT/HCPCS: 74177; 71260; J3490

== ENCOUNTER 2022-05-24 07:50 | Day surgery (SDC) | payer MEDICARE, SELFPAY ==
[2022-05-24] VITALS (9 sets, daily range): BP systolic 88–139; BP diastolic 40–62; PULSE 57–71; RESP 11–16; TEMP 36–36.4; O2SAT 96–99; BMI 40.7
--- NOTE | 2022-05-24 07:41 | PDOC.DSDIS_ITS ---
Date of service: 05/24/22 Time of Service: 13:50 Discharge Plan Disposition Patient Disposition: HOME Condition: Good Discharge Details Reason For Visit: Right KIMMY Attending Provider: Ernie Bocanegra Primary Care Provider: Shankar Saleh Home Meds and New Rx's Prescriptions: New celecoxib [Celebrex] 200 mg capsule 200 mg PO BID Qty: 60 0RF aspirin 81 mg tablet,delayed release (DR/EC) 81 mg PO BID Qty: 60 0RF acetaminophen 500 mg capsule 1,000 mg PO Q8H PRN PRNQty: 90 0RF oxycodone 5 mg tablet 5 mg PO Q4H PRNQty: 18 0RF Continued losartan 100 MG tablet 100 mg PO DAILY fluticasone propionate [Flonase Allergy Relief] 9.9 ML spray,suspension 9.9 ml NS DAILY DIPROLENE LOTION 0.05 % Topical PRN amitriptyline 25 mg tablet 25 mg PO DAILY tadalafil 2.5 mg tablet 2.5 mg PO DAILY chlorthalidone 25 mg tablet 25 mg PO DAILY terazosin 2 mg capsule See Rx Instructions PO HS Rx Instructions: 1 cap q am and 2 caps hs orally bedtime; metformin 850 mg tablet 850 mg PO DAILY pantoprazole 40 mg tablet,delayed release (DR/EC) 40 mg PO DAILY Discontinued ibuprofen 200 MG tablet 800 mg PO AM Discharge Instructions Additional Instructions: Total Hip Discharge Instructions Activity: The most important activity is to walk. You should try to take short walks a few times a day. You have no restrictions on movement or positioning, but do not try to force what you do. You will find some stiffness and weakness with hip flexion (lifting your knee). Do not try to strengthen this too early, continue to practice walking and stairs and this will come. - Outpatient physical therapy can be helpful to help return you to a normal gait and improve your flexibility and strength. This can start around 2 weeks. For some patients, it?s not necessary. Usually this is determined at the time of discharge or at the first post-operative visit. - You should wear the ROCK hose on both legs for 2 weeks. Dressing: Keep the surgical dressing in place for at least one week. After the first week it may be removed and replace with light gauze and tape or nothing. It may get wet after 3 days but avoid soaking the dressing. If it gets wet, just lightly pat dry. It is important to always keep some gauze between skin folds, especially when you are sitting. Spend some time with the wound exposed when you are lying flat as the incision does wrinkle onto itself. Medications: - You should take Tylenol and an anti-inflammatory Celebrex as your primary pain control medications. If the Celebrex is too expensive or not covered, please call the office for another alternative (Advil/Ibuprofen or Naproxen/Aleve). - You have been prescribed a stronger pain medication Oxycodone for breakthrough pain, take as needed as prescribed. - Continue with your previously prescribed stomach acid reduction agent Pantoprozole to help reduce stomach acid and reflux. - You will be taking Aspirin 81mg twice a day for DVT prevention unless instructed otherwise. - If you have constipation you should take Colace or Miralax (both [id number]). It takes most people 3-4 days to have a bowel movement. Follow-up: 2 weeks If you have any acute concerns or questions, please do not hesitate to contact the office at [phone]. You may contact Dr. Bocanegra with any questions after hours through the hospital at [phone] or on his cell phone at [phone]. Stand Alone Forms: Anesthesia Discharge Inst., Mehnaz Velázquez (U) Referrals: Ernie Bocanegra MD [ [facility] STAFF PHYSICIAN] - Equipment/Supplies: Walker Activity:: Activity as Tolerated Remove Dressings/Wound Care:: Do Not Remove Shower/Bathe:: 72 hours Diet:: As Tolerated Discharge Orders Discharge Orders: Discharge Order (Routine); Ordered 05/24/22 Ordered By: Dana Ellis DS: Diagnosis Discharge Diagnosis (1) Primary osteoarthritis of right hip: Status: Chronic
--- NOTE | 2022-05-24 08:36 | ANES.PREOP_ITS ---
General Info Date of Service Date Performed: 05/24/22 Height: 5 ft 6.5 in Weight: 116.2 kg Body Mass Index (BMI): 40.7 Surgical Procedure: Operation Date: 05/24/22 10:35 Proposed Procedure Side Surgeon p Hip Total Hip Anterior ACTIS Right Ernie Bocanegra MD Meds Allergies and Home Medications Allergies Allergy/AdvReac Type Severity Reaction Status Date / Time pravastatin Allergy Intermediate Verified 05/24/22 08:39 lisinopril Allergy Mild Verified 05/24/22 08:39 desipramine Allergy Unknown Verified 05/24/22 08:39 aspirin AdvReac Unknown Verified 05/24/22 08:39 Home Medication Medication Instructions Recorded Diprolene Lotion 0.05 % topical PRN 09/06/15 fluticasone propionate 50 9.9 ml NS DAILY 09/06/15 mcg/actuation nasal spray,suspension (Flonase Allergy Relief) losartan 100 mg tablet 100 mg PO DAILY 09/06/15 pantoprazole 40 mg tablet,delayed 40 mg PO DAILY 11/22/21 release amitriptyline 25 mg tablet 25 mg PO DAILY 12/20/21 chlorthalidone 25 mg tablet 25 mg PO DAILY 12/20/21 metformin 850 mg tablet 850 mg PO DAILY 12/20/21 tadalafil 2.5 mg tablet 2.5 mg PO DAILY 12/20/21 terazosin 2 mg capsule See Rx Instructions PO HS 12/20/21 acetaminophen 500 mg capsule 1,000 mg PO Q8H PRN PRN #90 caps 05/24/22 aspirin 81 mg tablet,delayed 81 mg PO BID #60 tabs 05/24/22 release celecoxib 200 mg capsule (Celebrex) 200 mg PO BID #60 caps 05/24/22 oxycodone 5 mg tablet 5 mg PO Q4H PRN #18 tabs 05/24/22 Current Visit Medications: Current Medications Generic Name Dose Route Start Last Admin Trade Name Freq PRN Reason Stop Dose Admin Acetaminophen 1,000 mg 05/24/22 06:00 Acetaminophen 500 Mg Tab PO 05/24/22 16:00 PREOP LETICIA Acetaminophen 1,000 mg 05/24/22 14:00 Acetaminophen 500 Mg Tab PO TID LETICIA Aspirin 81 mg 05/24/22 20:00 Aspirin E.C. 81 Mg Tabec PO BID LETICIA Celecoxib 400 mg 05/24/22 06:00 Celecoxib 200 Mg Cap PO 05/24/22 16:00 PREOP LETICIA Celecoxib 200 mg 05/24/22 20:00 Celecoxib 200 Mg Cap PO BID LETICIA Hydromorphone HCl 0.5 mg 05/24/22 07:40 Hydromorphone 2 Mg/Ml Syr IVP Q2H PRN PRN Tranexamic Acid 1,000 mg/ 60 mls @ 360 mls/hr 05/24/22 06:00 Sodium Chloride IV 05/24/22 16:00 PREOP LETICIA Ringer's Solution 1,000 mls @ 80 mls/hr 05/24/22 06:00 IV 06/22/22 23:59 INFUSION LETICIA Cefazolin Sodium 3,000 mg/ 100 mls @ 200 mls/hr 05/24/22 06:00 Sodium Chloride IVPB 05/24/22 18:00 PREOP LETICIA Cefazolin Sodium/Dextrose 1 gm in 50 mls @ 100 mls/hr 05/24/22 18:00 Ancef Duplex IVPB 05/25/22 10:29 Q8H [facility] IV Miscellaneous Supplies 1 each 05/24/22 06:00 Iv Access IV 06/22/22 23:59 DIRECTED LETICIA Ondansetron HCl 4 mg 05/24/22 07:40 Ondansetron 4 Mg/2 Ml Vial IVP Q6H PRN PRN Nausea Oxycodone HCl 0 mg 05/24/22 07:40 Oxycodone 5 Mg Tab PO Q3H PRN PRN Pain Pantoprazole Sodium 40 mg 05/25/22 07:30 Pantoprazole 40 Mg Tabcr PO DAILY@0730 [facility] Sodium Chloride 0 ml 05/24/22 06:00 Normal Saline Flush 10 Ml Syr IV 06/22/22 23:59 PRN PRN Sodium Chloride 0 ml 05/24/22 06:00 Normal Saline 10 Ml Vial IJ 06/22/22 23:59 DIRECTED PRN Sterile Water 0 ml 05/24/22 06:00 Water,Injection,Sterile 10 Ml Vial IJ 06/22/22 23:59 DIRECTED PRN PFSH Active Problems Active Problems: Problem Status Onset Code Sensory hearing loss, bilateral 02/16/14 H90.3 Dyspepsia R10.13 Fatty infiltration of liver K76.0 Primary osteoarthritis of right hip M16.11 Trochanteric bursitis, right hip M70.61 Medical History Medical History (Updated 05/23/22 @ 09:45 by Diana Joy RN) BPH (benign prostatic hyperplasia) Carpal tunnel syndrome on both sides Cervical radiculopathy Chronic sinusitis (02/16/14) Depression Diabetes mellitus A1c taken in orthopedic office 05/11/22 was 6.5 Erectile dysfunction Gout Hypertension Hypogonadism Nasal polyp (02/16/14) Obesity Osteoarthritis of neck Post-nasal drip Psoriasis Sleep apnea Tinnitus (02/16/14) Medical History Comments:: pt uses CPAP every night. last used 05/23/22. 05/24/22: pt reports he has a post nasla drip which causes him to cough., Surgical History Surgical History Gastric Bypass In H/O colonoscopy History of cardiac catheterization (2009) History of carpal tunnel surgery of left wrist (2015) History of gastroscopy History of right inguinal hernia Reports it was diagnosed as fat and did not have mesh Polyp of nasal sinus Status post total left knee replacement Status post total right knee replacement Umbilical hernia [place] teeth extracted Tobacco Smoking/Tobacco Use Status: Former Tobacco Use Alcohol Alcohol Intake: never Substance Use Substance use: Never Substance use type: does not use Vital Signs and Lab Results Vital Signs Most Recent Vital Signs in EMR: Most Recent Vital Signs Temp Pulse Resp BP Pulse Ox 36.4 C L 62 16 139/62 98 05/24/22 08:31 05/24/22 08:31 05/24/22 08:31 05/24/22 08:31 05/24/22 08:31 Point of Care Results Point of Care Results: Finger Stick Blood Glucose 127 05/24/22 08:12 Lab Results Blood Type / Crossmatch: No Data to Display Complete Blood Count: White Blood Count 6.15 10^3/uL (4.4-10.8) 05/11/22 12:55 Red Blood Count 4.23 10^6/uL (4.36-5.78) L 05/11/22 12:55 Hemoglobin 12.5 g/dL (13.5-17.5) L 05/11/22 12:55 Hematocrit 35.9 % (40.0-50.0) L 05/11/22 12:55 Platelet Count 185 10^3/uL (130-400) 05/11/22 12:55 Complete Metabolic Panel: Sodium 138 mmol/L (136-145) 05/11/22 12:38 Potassium 3.7 mmol/L (3.5-5.1) 05/11/22 12:38 Chloride 102 mmol/L (98-107) 05/11/22 12:38 Carbon Dioxide 24.1 mmol/L (21.0-32.0) 05/11/22 12:38 BUN 28 mg/dL (7-18) H 05/11/22 12:38 Creatinine 1.5 mg/dL (0.70-1.30) H 05/11/22 12:38 Est GFR (CKD-EPI 2020) 51.35 (mL/min/1.73m2) 05/11/22 12:38 Calcium 8.7 mg/dL (8.5-10.1) 05/11/22 12:38 Albumin 4.0 g/dL (3.4-5.0) 05/01/22 12:20 Glucose 168 mg/dL (74-106) H 05/11/22 12:38 C-Reactive Protein 0.11 mg/dL (0.0-0.3) 05/01/22 12:20 Liver Function Panel: Alanine Aminotransferase (ALT/SGPT) 26 U/L (16-63) 05/01/22 12: 20 Aspartate Amino Transf (AST/SGOT) 18 U/L (15-37) 05/01/22 12:20 Coagulation Panel: No Data to Display Cardiac Panel: No Data to Display Arterial Blood Gas: No Data to Display Venous Blood Gas: No Data to Display Pancreas Panel: No Data to Display Thyroid Panel: No Data to Display Infectious Disease: No Data to Display Blood Cultures: No Data to Display Toxicology Panel: No Data to Display Anesthesia Assessment and Plan Anesthesia History Personal History: No History of Anesthesia Complications and Awareness Under Anesthesia Family History: No Family History of Anesthesia Complications Exercise Tolerance Exercise Tolerance: Metabolic Equivalents>4 Pertinent Negatives Pertinent Negatives: No Symptoms of GERD, No Major Cardiovascular Symptoms or Complaints and No Major Pulmonary Symptoms or Complaints Cardiac & Pulmonary Exam Cardiac Exam: Normal S1/S2 Heart Sounds Pulmonary Exam: Clear Bilateral Breath Sounds Implantable Cardiac Device Does patient have a Pacemaker or an ICD?: No Airway Exam Known Difficult Airway: No Mallampati Class: 1 Mouth Opening: Normal (> 3cm) Thyromental Distance: Greater than 3 cm Neck Range of Motion: Full ROM Neck Circumference: Normal Teeth Condition: Normal Dentition ASA Classification ASA Score: ASA 2 Emergency Case?: No NPO Status NPO Status: NPO Clears >2 hours, Solids >8 hours Anesthesia Plan Resuscitation Status: Full Code Anesthesia Technique: Spinal Anesthesia Airway Planned: Natural Airway Monitors Used: Standard Monitors
[2022-05-24] MEDS: Acetaminophen 500 MG TAB 1000 MG PO (08:52)
[2022-05-24] MEDS: Celecoxib 200 MG CAP 400 MG PO (08:53)
[2022-05-24] MEDS: Lactated Ringers 1,000 ML 80 ML IV (08:54)
--- NOTE | 2022-05-24 09:15 | DI.RAD_ITS ---
Exam(s) XR HIP RT IN OR EXAM: XR HIP RT IN OR CLINICAL HISTORY: right hip osteoarthritis. TECHNIQUE: 2D and realtime digital imaging was performed. COMPARISON: No exams were available for comparison FINDINGS: Fluoroscopy was provided in the OR for Dr. Bocanegra. Hard copy image shows placement of a right hip prosthesis. The alignment appears satisfactory. Please see procedure note for details. Fluoro time: 29 secondsseconds RADIATION DOSE DELIVERED: [email or web address] Ramirez=9.8 mGy
[2022-05-24] MEDS: ceFAZolin 3,000 MG in Normal Saline 100 ML 200 MG IVPB (09:39)
[2022-05-24] MEDS: Normal Saline 10 ML VIAL IJ (11:30)
[2022-05-24] MEDS: HYDROmorphone 2 MG/ML SYR IVP ×3 (11:30→12:07)
--- NOTE | 2022-05-24 12:07 | ROE_ITS ---
Date of service: 05/24/22 Time of Service: 11:20 Operative Note Operative Note DATE OF PROCEDURE: 05/24/22 PRE-OP DIAGNOSIS: Right Hip Arthritis POST-OP DIAGNOSIS: same PROCEDURE: Right Anterior Total Hip Arthroplasty with Intraoperative Navigation SURGEON: Ernie Bocanegra TOBACCO GRADER: Dana Ellis ANESTHESIA TYPE: Spinal Refer to Anesthesia Record ESTIMATED BLOOD LOSS: 300 PATHOLOGY: none sent TOURNIQUET TIME: 0 COMPLICATIONS: None Patient was transported to: PACU Patient's condition: stable Implants: 1. Depuy [place] Acetabular Component, 56mm 2. Depuy Acetabular Liner, [id number] 3. Depuy Actis High Offset Collared Femoral Stem, Size 6 4. Depuy Altrx Ceramic Femoral Head, Size 36+1.5mm Indications: I have seen Ed in clinic for symptoms of hip arthritis, confirmed with radiographic findings. Ed has exhausted nonoperative methods and was having significant limitations in daily function and desired better function and less pain. I discussed the technical details of a hip replacement. I explained the risks of the procedure to include, but not limited to, bleeding, infection, pain, stiffness, fracture, damage to nerves and vessels, damage to muscles and tendons, loosening, instability, leg length inequality, need for repeat procedure, blood clot and cardiopulmonary demise. Despite these risks, Ed elected to proceed. Findings: There was significant signs of arthritis throughout the hip with complete loss of cartilage from the superior femoral head. Procedure Description: Ed was greeted in the preoperative holding area where the correct side was identified and marked. The consent was reviewed with the patient and signed. The history and physical was updated. All questions were answered. He was taken back to the operating room. A spinal anesthestic was then administered. The feet were wrapped with cast padding and Coban and then placed into the boot liners and then into the boots. Care was taken to protect the skin and make sure the heels were fully down and the boots were stable. The patient was then positioned onto the HANA table. Both legs were held in a neutral position. SCDs were applied. The patient was then slid down onto a peroneal post. Prophylactic antibiotics in the form of Cefazolin were administered. 1g of Tranxemic Acid was given intravenously within 30 minutes of incision. The right leg was then prepped with Chloraprep and draped in a standard fashion. A second prep with Chloraprep was performed prior to placement of a shower-curtain type drape with Iodine impregnated skin protection. A timeout to confirm correct identity, side and site, procedure, allergies, anesthesia, and medical concerns was performed. An obliquely oriented incision was made starting lateral to the ASIS and running distal over the Tensor Fascia Yelitza (TFL) muscle belly toward the fibular head, approximately 10cm. The skin and soft tissue was dissected sharply, through Radha?s fascia, and to the fascia of the TFL. With the fascia and superior border of the IT band identified, the fascia was incised with a new knife just above any perforators from the IT band. The TFL muscle belly was bluntly dissected away from the fascia and moved laterally. The fat between TFL and rectus was identified to ensure the dissection was not within the TFL. Blunt dissection created space between abductors and the capsule and retractor was placed over the lateral femoral neck. The fibers of the rectus femoris tendon were identified and these were freed from the anterior capsule. A second cobra retractor was placed around the medial femoral neck. The TFL was further retracted laterally to show the deep fascia. Careful dissection through this layer identified three main crossing vessels of the lateral femoral circumflex. These were cauterized in multiple locations and then cut without any noticeable bleeding. The TFL was further released bluntly from the deep fascia to expose anterior hip capsule and fat The Gutierrez orthopaedic retractor was then placed beneath the TFL and against sartorius and medial soft tissues to protect and retract the soft tissues. A T-capsulotomy was then performed starting at the superior lateral acetabulum and moving distally to the intertrochanteric ridge. These capsular flaps were tagged with a No. 1 Ethibond and elevated from within. The capsular flaps were released to the shoulder of the lateral neck and to the lesser trochanter to give excellent visualization of the proximal femur. A neck osteotomy was performed using an oscillating saw based on preoperative templates. This cut started in the shoulder and of the lateral neck and exited medially. The saw was at all times directed medially to avoid injury to the greater trochanter. Gross traction was applied to the leg and the osteotomy opened. The femoral head was removed with a corkscrew, making sure to protect the TFL on its exit. Traction was released after head removal. This was measured on the back table to determine the starting reamer size. Portions of the rectus obscuring visualization were minimally elevated off the superior acetabulum. An anterior retractor was placed over the anterior wall between capsule and labrum and attached to the Gripper retraction system. The femur was rotated to 90 degrees and medial capsule was fully released until the lesser trochanter was palpable and visible; the femur was returned to 30 degrees. A posterior retractor was placed similarly between capsule and labrum. This provided excellent visualization. The contents of the cotyloid fossa were removed with electrocautery and the labrum was removed with a knife. There was significant chondromalacia of the superior acetabulum. Acetabular reaming began with a 52mm reamer. This first reaming was directed anterior to posterior and medial to get down to the true floor. This was inspected and reamed until the true floor was reached. The anterior retractor was then released and entry and exit was provided by traction on the capsular flaps. I then reamed sequentially up to a 56mm reamer where good fit was obtained. The larger reamers were oriented based on anatomical reference of the anterior and lateral bardales to ensure proper abduction and anteversion. Positioning and size was confirmed with the fluoroscopy. A 56mm Depuy [place] acetabular component was selected. The acetabulum was reamed around the periphery with the selected acetabular size to prevent a rim fit. The deep tissues were irrigated. The acetabular component was then impacted in a position of about 40-45 degrees of abduction and 15-20 degrees of anteversion, using the patient?s anatomy as the ultimate landmark. Fluoroscopy was used to confirm this. There was excellent employee communications coordinator of the acetabular component and the inserting handle was removed. The acetabular liner, Depuy [id number] polyethylene liner, was inserted and lined up with the tines of the acetabular component. There was no soft tissue interposition. The liner was then impacted into position and confirmed to be well-seated. A portion of the javi-articular cocktail was then injected around the acetabulum into the capsule and periosteum. This cocktail consisted of 123mg of Ropivacaine, 0.25mg of Epinephrine, and 15mg of Ketorolac, diluted to 50cc. The leg was rotated to 120 degrees. Any remaining medial capsule was released until the lesser trochanter was easily palpable. A retractor was placed medially. The lateral capsule was further released into the shoulder to allow access to the greater trochanter. A Brooks retractor was placed over the greater trochanter which allowed the trochanter to flip in front of the capsule for excellent exposure. The leg was brought down into maximal extension and 20 degrees of adduction while ensuring there was no impingement on the acetabulum. Any remnant capsule within the trochanter was released. Piriformis and obturator externis were identified and protected. There was excellent access to the proximal femur. The lateral neck remnant was removed with a rongeur. A blunt canal probe was used to identify the canal and trajectory for later broaching. A box osteotome initiated the broach course. A small curved rasp and a curved curette were used to work laterally. Broaching then began with a size 8 Corail broach. This was inserted manually around the trochanter and into the canal before mallet blows. The broach was seated to a few millimeters below the cut level based on the neck cut and the preoperative template. Sequential broaching was continued with the [employer] pneumatic broaching device until a tight fit was obtained with good rotational control of the femur. A trial high offset neck was inserted along with a +1.5 trial head. The leg was brought out of extension and adduction and then reduced with traction and internal rotation. The leg was stable anteriorly in a position of 30 degrees of extension and 90 degrees of external rotation. Fluoroscopy was used to ensure there was no fracture and the stem was seated well. Leg lengths were checked with an AP pelvis and pelvic reference points. XOXO Kitchen navigation system was used to confirm appropriate positioning and leg length and offset. Once content with the desired offset and leg lengths, the leg was brought back into extension, external rotation and adduction. The periosteum and surrounding tissue was injected with remaining portion of the javi-articular cocktail. The proximal femur was irrigated as well as the deep tissues. The Depuy Actis high offset collared stem, size 6, was then manually inserted into the proximal femur making sure to control rotation. It was then malleted into position with light blows, giving breaks to allow bone expansion and decrease risk of fracture. The selected Depuy Altrx Ceramic Head, size 36+1.5mm, was then placed onto the clean and dry trunnion and secured with impaction onto the tapered fit. The leg was brought back out of extension and adduction and reduced with traction and internal rotation. Stability was confirmed with no shuck at 90 degrees of external rotation and 30 degrees of extension. No impingement through range of motion arc. Final x-ray images were obtained with fluoroscopy to confirm adequate positioning and no intraoperative fracture. The deep tissues were thoroughly irrigated with Surgiphor, betadine solution. This was allowed to sit in the wound for 3 minutes before being thoroughly irrigated out with normal saline. The capsule was then reapproximated with the previously placed Ethibond sutures. The TFL fascia was finally closed with a No. 2 Stratafix, barbed suture. Deep tissues were then reapproximated with 0 Vicryl and a running 2-0 Vicryl. The skin was closed with a running 4-0 Monocryl in a subcuticular fashion. This was reinforced with skin glue. A Mepilex silver dressing was applied. At the end of the case, all counts were correct. Ed was transferred to the hospital bed without difficulty and suffering no apparent complication. Ed has a good prognosis. Physical therapy will start today and without restrictions, weight-bearing as tolerated. Aspirin 81mg BID will be used for DVT prophylaxis.
--- NOTE | 2022-05-24 12:34 | W.ANESPOSTOP ---
Postoperative Evaluation Date, Time and Location Date Performed: 05/24/22 Time Performed: 12:34 Patient Location: PACU Vital Signs Most Recent Imported Vital Signs: Most Recent Vital Signs Temp Pulse Resp BP Pulse Ox 36.4 C L 64 13 125/46 L 98 05/24/22 12:18 05/24/22 12:18 05/24/22 12:18 05/24/22 12:18 05/24/22 12:18 Pain Score Most Recent Pain Score: Most Recent Pain Score Pain Level 3 05/24/22 12:18 Assessment Mental Status: Awake (Alert & Oriented to Patient Baseline) Airway and Respiratory Function: Patent airway with normal (patient baseline) respiratory exam Cardiovascular Function: Hemodynamically Stable Hydration Status: Adequately Hydrated Nausea & Vomiting: No Nausea or Vomiting Pain: Pain is tolerable per patient Peripheral Nerve Block: Patient did not receive a nerve block
--- NOTE | 2022-05-24 13:26 | PT.INIE ---
Date of service: 05/24/22 Time of Service: 13:26 PT Notes Visit Reasons: Right KIMMY Physical Therapy Day Surgery Initial Evaluation Date: 05/24/2022 Referring Doctor: RYAN Li PT Orders: PT CONSULT: S/p Ortho surgery Precautions: DVT on right LE with AD. Patient Profile/Admitting Diagnosis: Den is a 67-year-old male with degenerative joint disease of the right hip and is status post right anterior total hip arthroplasty on postoperative day 0. PMHX: Medical History?(Updated 05/11/22 @ 14:16 by Shaye Cedeño) BPH (benign prostatic hyperplasia) Carpal tunnel syndrome on both sides Cervical radiculopathy Chronic sinusitis (02/16/14) Depression Diabetes mellitus A1c taken in orthopedic office 05/11/22 was 6.5 Erectile dysfunction Gout Hypertension Hypogonadism Nasal polyp (02/16/14) Obesity Osteoarthritis of neck Psoriasis Sleep apnea Tinnitus (02/16/14) Surgical History?(Updated 05/11/22 @ 13:29 by Shaye Cedeño) Gastric Bypass In H/O colonoscopy History of cardiac catheterization (2009) History of carpal tunnel surgery of left wrist (2015) History of gastroscopy History of right inguinal hernia Reports it was diagnosed as fat and did not have mesh Polyp of nasal sinus Status post total left knee replacement Status post total right knee replacement Umbilical hernia [place] teeth extracted Social History/Home Situation: Lives with in a 1 floor private home with 4 steps to enter with rails that are far apart. Independent with all aspects of ADLs prior to surgery. Equipment Owned/DME: [facility] Subjective: Reports 2/10 pain on the right hip which she describes as burning at rest and 3/10 with ambulation. Denies headache, chest pain, and lightheadedness throughout session. Objective: General Observation: Seated on bedside chair. Mepilex Ag over surgical incision. TEDs to both legs. Mental Status: Alert and oriented x4 Pain: 2/10 at rest; 3/10 with weight bearing on the right hip ROM: Right Lower Extremity: Hip flexion WFL. Hip abduction WFL. Knee flexion WFL. Ankle dorsiflexion WFL. Ankle plantarflexion WFL. Left Lower Extremity: Hip flexion WFL. Hip abduction WFL. Knee flexion WFL. Ankle dorsiflexion WFL. Ankle plantarflexion WFL. Strength: Right Lower Extremity: Hip flexors 4-/5. Hip abductors 4-/5. Knee flexors 5/5. Knee extensors 4-/5. Ankle dorsiflexors 5/5. Ankle plantarflexors 5/5. Left Lower Extremity:Hip flexors 5/5. Hip abductors 5/5. Knee flexors 5/5. Knee extensors 5/5. Ankle dorsiflexors 5/5. Ankle plantarflexors 5/5. Sensation: Intact as to pain and light pressure in bilateral lower extremities Bed Mobility/Transfers: Sit to stand standby assist Stand to sit standby assist Bed to chair standby assist Gait: Tolerated level surface ambulation of up to 150 feet using front wheeled walker with step through gait pattern requiring only standby assist. Mild increase in pain reported that subsided with rest. Stairs: Up and down 6 x 4 inch steps times 4 x 6 inch steps while holding onto 1 rail with both hands using correct technique with step to gait pattern requiring only standby assist. THERA EX: Bilateral heel raises x 5 Partial knee bends x 5 Hip extension from flexed position to neutral x 5 Balance: Static Sitting: Normal Dynamic Sitting: Normal Static Standing: Fair Dynamic Standing: Fair Special Tests: Mobility Limitations Standardized Measure [facility]-PAC 6 clicks Basic Mobility Inpatient Short Form: Raw Score: 24 CMS Score: 0% deficit Informed Consent/Education: Patient instructed in purpose of PT consult. Education and training on initial set of exercises that can be done at home have been completed with patient. Assessment: Edward requires the use of a front wheeled walker for all mobility ADL performance to maximize independence and reduce fall risk. Patient presents with clinical signs and symptoms consistent with current/admitting diagnoses that have resulted to mobility limitations, gait instability, generalized weakness, and impairment of motor control as demonstrated by the following impairment level findings: 1. Decreased strength to right hip major muscle groups 2. Impaired standing balance Impairments are contributing to the following functional limitations: 1. Inability to safely ambulate without assistive device 2. Increase completion time for mobility ADL performance 3. Increased fall risk Patient is assessed as a 25249 moderate complexity based on the following: History: 67-year-old female with impairment level findings, functional limitations, and past medical history as indicated above Examination: Demonstrable impairment in strength, balance, and mobility level with underlying impairments and functional limitations as documented above Presentation: Evolving Decision Makin moderate complexity Goals: N/A. PT evaluation and 1-2 treatment sessions only for functional mobility training using recommended AD and for HEP instruction. Plan of Care/Treatment Plan: N/A. PT evaluation and 1-2 treatment session only for functional mobility training using recommended AD and for HEP instruction. DISCHARGE RECOMMENDATIONS: [] Home with no services [] [] Home with services [specify] [X] Home with outpatient PT. Home when medically cleared by orthopedic surgeon. Will benefit from outpatient PT services in order to optimize functional mobility outcomes and facilitate return to independent community ambulation without an assistive device. [] SNF for continued rehabilitation [] [] [facility] [] [] SNF versus LTC based on ability to participate and progress [] TREATMENT CODE/TIME: 9716 2 x 20 minutes, 30568 x 23 minutes beginning at 13:26 PM. Thank you for the opportunity to participate in the care of this patient. Lindsay Parson PT, DPT, CLT [facility] [place], [place]
== END 2022-05-24 14:33 | disposition home or self-care (01) ==
PROVIDERS: PCP Internal Medicine; Visit Provider Student in an Organized Health Care Education/Training Program
PROC: (CPT 27130; principal; 2022-05-24 10:15)
DX: M16.11 Unilateral primary osteoarthritis, right hip (principal); E11.9 Type 2 diabetes mellitus without complications; E66.9 Obesity, unspecified; Z68.41 Body mass index [BMI] 40.0-44.9, adult
CPT/HCPCS: 20985; 27130; C1776; 97162; 97530; 73501; J0690; J1100; J1170; J2250; J2405

== ENCOUNTER 2022-06-08 11:41 | Outpatient (CLI) | payer MEDICARE, SELFPAY ==
--- NOTE | 2022-06-08 10:15 | DI.RAD_ITS ---
Exam(s) XR HIP RT COMPLETE AP PELVIS EXAM: XR HIP RT COMPLETE AP PELVIS CLINICAL HISTORY: 1st post op KIMMY TECHNIQUE: COMPARISON: CR XR PELVIS AP from 05/11/2022 FINDINGS: Two views were obtained. There is a total hip joint replacement position on the right. The componen ts appear well seated. No other significant bony abnormality seen. IMPRESSION: RADIATION DOSE DELIVERED: Total DLP
== END 2022-06-08 11:42 | disposition home or self-care (01) ==
LOC: DIORS 11:41
PROVIDERS: PCP Internal Medicine; Referring Provider Internal Medicine; Visit Provider Student in an Organized Health Care Education/Training Program
DX: Z96.641 Presence of right artificial hip joint (principal); Z47.1 Aftercare following joint replacement surgery
CPT/HCPCS: 73502

== ENCOUNTER → 2022-07-07 10:19 | Outpatient (BNVA) | payer MEDICARE, SELFPAY | PROVIDERS: PCP Internal Medicine; Referring Provider Internal Medicine; Visit Provider Student in an Organized Health Care Education/Training Program | DX: Z47.1 Aftercare following joint replacement surgery (principal); Z96.641 Presence of right artificial hip joint ==

== ENCOUNTER → 2022-08-18 10:28 | Outpatient (BNVA) | payer MEDICARE, SELFPAY | PROVIDERS: PCP Internal Medicine; Referring Provider Internal Medicine; Visit Provider Physician Assistant | DX: Z47.1 Aftercare following joint replacement surgery (principal); R20.0 Anesthesia of skin; Z96.641 Presence of right artificial hip joint ==

== ENCOUNTER 2022-10-26 14:00 | Emergency (ER) | payer MEDICARE, SELFPAY ==
[2022-10-26 14:05] VITALS: BP 131/65; PULSE 83; RESP 20; O2SAT 97
--- NOTE | 2022-10-26 14:39 | ED.GENADUL_ITS ---
Discharge Plan Disposition Patient Disposition: Home Discharge Details Clinical Impression: Cystitis Primary Care Provider: Shankar Saleh ED Provider: Luna Pickett Home Meds and New Rx's Prescriptions: New phenazopyridine [Pyridium] 200 mg tablet 200 mg PO TID PRN (Reason: pain) Qty: 6 0RF Continued celecoxib [Celebrex] 200 mg capsule 200 mg PO DAILY Qty: 30 3RF Rx Instructions: Take one tablet daily losartan 100 MG tablet 100 mg PO DAILY fluticasone propionate [Flonase Allergy Relief] 9.9 ML spray,suspension 9.9 ml NS DAILY DIPROLENE LOTION 0.05 % Topical PRN amitriptyline 25 mg tablet 25 mg PO DAILY tadalafil 2.5 mg tablet 2.5 mg PO DAILY chlorthalidone 25 mg tablet 25 mg PO DAILY terazosin 2 mg capsule See Rx Instructions PO HS Rx Instructions: 1 cap q am and 2 caps hs orally bedtime; metformin 850 mg tablet 850 mg PO DAILY pantoprazole 40 mg tablet,delayed release (DR/EC) 40 mg PO DAILY acetaminophen 500 mg capsule 1,000 mg PO Q8H PRN PRNQty: 90 0RF Discharge Instructions Instructions: Urinary Tract Infection in Men (DC) Additional Instructions: continue to drink 6-8 glasses of water daily to stay well hydrated urine culture is pending, you have been given antiboitics to cover infection, you should not need any further prescription for now. you can take pyridium as directed if need for painful urination, it will turn your urine bright orange Referrals: Shankar Saleh MD [Primary Care Provider] - Medical Decision Making <Magali Jung NP - Last Filed: 10/26/22 15:45> 67-year-old male presents to the ER with chief complaint of dysuria since Sunday night, fever and left side pain also reports now incontinent of urine. Having a hard time controlling his bladder. Patient reports that he did start a n antibiotic that belonged to his dog on Sunday night he is unsure of the name of it. Does have a past medical history of obesity, BPH, gout hypertension, he was also have a past surgical history of gastric bypass, he was seen at [facility] prior to arrival and instructed to follow-up for further eval. Work-up ordered including CBC CMP, CT abdomen pelvis without contrast, urinalysis, patient is incontinent of urine at this time. Differential diagnosis includes but not limited to UTI, kidney stone, pyelonephritis Care is to be handed off to oncoming provider Luna Pickett NP pending CT result, bladder scan and lab results. Urinalysis shows no evidence of UTI, does show 100 protein trace blood 1.0 urobilinogen no leukocytes no nitrites. Medical Records Medical records reviewed: Yes I reviewed the patient's medical records. <Luna Pickett NP - Last Filed: 10/26/22 16:37> 67-year-old male presents to the ER with chief complaint of dysuria since Sunday night, fever and left side pain also reports now incontinent of urine. Having a hard time controlling his bladder. Patient reports that he did start an antibiotic that belonged to his dog on Sunday he is unsure of the name of it. Does have a past medical history of obesity, BPH, gout hypertension, he was also have a past surgical history of gastric bypass, he was seen at [facility] prior to arrival and instructed to follow-up for further eval. Work-up ordered including CBC CMP, CT abdomen pelvis without contrast, urinalysis, patient is incontinent of urine at this time. Differential diagnosis includes but not limited to UTI, kidney stone, pyelonephritis Care is to be handed off to oncoming provider Luna Pickett NP pending CT result, bladder scan and lab results. Urinalysis shows no evidence of UTI, does show 100 protein trace blood 1.0 urobilinogen no leukocytes no nitrites. Patient signed out to me by RYAN Carreon. Patient reporting signs of dysuria frequency urgency and incontinence. CT scan shows no stone no obstructive uropathy no etiology to explain symptoms. Does castano ve elevated white count at 12 and temperature of 38..5 and states he has been febrile for the last 2 to 3 days. We will give 1 g of IV ceftriaxone 3 g of oral fosfomycin 200 mg of Pyridium and will send urine culture. He will be discharged to home with no prescriptions at this time while urine culture is pending. He will given a prescription for Pyridium to use as needed and will follow-up with his primary care provider or return sooner for new or worsening symptoms HPI <Magali Jung NP - Last Filed: 10/26/22 15:45> General Mode of arrival: ambulatory . Date/Time Provider Initiated Documentation: 10/26/22 14:09 . Limitations to Documentation: no limitations . Information obtained by: RN notes reviewed and old records reviewed . HPI Narrative: 67-year-old male presents to the ER with chief complaint of dysuria since Sunday night, fever and left side pain also reports now incontinent of urine. Having a hard time controlling his bladder. Patient reports that he did start an antibiotic that belonged to his dog on Sunday night he is unsure of the name of it. Does have a past medical history of obesity, BPH, gout hypertension, he was also have a past surgical history of gastric bypass, he was seen at [facility] prior to arrival and instructed to follow-up for further eval. Related Data Home Medications Medication Instructions Recorded Confirmed Diprolene Lotion 0.05 % topical PRN 09/06/15 08/18/22 fluticasone propionate 50 9.9 ml NS DAILY 09/06/15 08/18/22 mcg/actuation nasal spray,suspension (Flonase Allergy Relief) losartan 100 mg tablet 100 mg PO DAILY 09/06/15 08/18/22 pantoprazole 40 mg tablet,delayed 40 mg PO DAILY 11/22/21 08/18/22 release amitriptyline 25 mg tablet 25 mg PO DAILY 12/20/21 08/18/22 chlorthalidone 25 mg tablet 25 mg PO DAILY 12/20/21 08/18/22 metformin 850 mg tablet 850 mg PO DAILY 12/20/21 08/18/22 tadalafil 2.5 mg tablet 2.5 mg PO DAILY 12/20/21 08/18/22 terazosin 2 mg capsule See Rx Instructions PO HS 12/20/21 08/18/22 acetaminophen 500 mg capsule 1,000 mg PO Q8H PRN PRN #90 caps 05/24/22 08/18/22 celecoxib 200 mg capsule (Celebrex) 200 mg PO DAILY #30 caps 08/18/22 08/18/22 phenazopyridine 200 mg tablet 200 mg PO TID PRN pain 6 doses #6 10/26/22 (Pyridium) tabs Previous Rx's Medication Instructions Recorded acetaminophen 500 mg capsule 1,000 mg PO Q8H PRN PRN #90 caps 05/24/22 celecoxib 200 mg capsule (Celebrex) 200 mg PO DAILY #30 caps 08/18/22 phenazopyridine 200 mg tablet 200 mg PO TID PRN pain 6 doses #6 10/26/22 (Pyridium) tabs Allergies Allergy/AdvReac Type Severity Reaction Status Date / Time pravastatin Allergy Intermediate Verified 08/18/22 10:36 lisinopril Allergy Mild Verified 08/18/22 10:36 desipramine Allergy Unknown Verified 08/18/22 10:36 aspirin AdvReac Unknown Verified 08/18/22 10:36 General Stated Complaint: Urinary NATHAN: 3 Review of Systems <Magali Jung NP - Last Filed: 10/26/22 15:45> All systems reviewed & are unremarkable except as noted in HPI and below Genitourinary Genitourinary: Reports dysuria, Reports urinary frequency, Reports urinary incontinence and Reports urinary urgency PFSH <Magali Jung NP - Last Filed: 10/26/22 15:45> All Active Problems (Updated 10/26/22 @ 16:24 by Luna Pickett NP) Cystitis (Acute) History of total right hip replacement (Acute 05/24/22) Sensory hearing loss, bilateral (Acute 02/16/14) Dyspepsia (Acute) Fatty infiltration of liver (Acute) Trochanteric bursitis, right hip (Acute) Medical History BPH (benign prostatic hyperplasia) Carpal tunnel syndrome on both sides Cervical radiculopathy Chronic sinusitis (02/16/14) Depression Diabetes mellitus A1c taken in orthopedic office 05/11/22 was 6.5 Erectile dysfunction Gout Hypertension Hypogonadism Nasal polyp (02/16/14) Obesity Osteoarthritis of neck Post-nasal drip Psoriasis Sleep apnea Tinnitus (02/16/14) Surgical History Gastric Bypass In 1990s H/O colonoscopy History of cardiac catheterization (2009) History of carpal tunnel surgery of left wrist (2015) History of gastroscopy History of right inguinal hernia Reports it was diagnosed as fat and did not have mesh Polyp of nasal sinus Status post total left knee replacement Status post total right knee replacement Umbilical hernia Gold[place] teeth extracted Social History Smoking/Tobacco Use Status: Former Tobacco Use Quit Date: 05/11/22 Smoking risk assessment performed?: Yes Alcohol Intake: former Drug use: Never Substance use type: does not use Kristy/Christian: Mandaen Special kristy needs: Yes (refuses blood transfusions) Agree to transfusion: No Do you feel safe at home: Yes Do you feel safe in your relationship?: Yes Exam <Magali Jung NP - Last Filed: 10/26/22 15:45> Narrative Exam Narrative: Constitutional: Alert and oriented x3. Appears stated age. Obese body habitus. Head: Normocephalic, no trauma. Eyes: Pupils PERRL, Red reflex noted, EOM's intact. Eyelids symmetrical without lesions, discharge, or swelling. ENT: Bilateral TM's WNL, External ear normal to inspection, no mastoid TTP, swelling, or erythema, Nasal turbinates WNL, no nasal discharge. Normal dentition, Posterior pharynx WNL, no exudate. Chest: RRR, Normal S1, S2, distal pulses intact. Resp: Lungs clear to auscultation bilaterally, no wheezes, rales, or rhonchi. Abdomen: Soft, non-distended, Normoactive bowel sounds all 4 quads. Musculoskeletal: Normal gait, 5/5 strength to all four extremities. Skin: No suspicious rashes or lesions. Capillary refill less than 2 sec. Neurologic: Cranial nerves II-XII intact. Alert and oriented x 3. Motor: No deficits noted. Sensory: Intact bilaterally all 4 extremities. Reflexes: DTR's intact bilaterally.. Hematologic/Lymphatic: No ecchymosis, no lymphadenopathy. Course <Magali Jung NP - Last Filed: 10/26/22 15:45> Vital Signs Vital signs: Vital Signs Pulse 83 10/26/22 14:05 Respiratory Rate 20 10/26/22 14:05 Blood Pressure 131/65 10/26/22 14:05 Pulse Oximetry 97 10/26/22 14:05 Pulse 83 10/26/22 14:05 Respiratory Rate 20 10/26/22 14:05 Respiratory Effort Normal, Non-Labored 10/26/22 14:09 Blood Pressure 131/65 10/26/22 14:05 Blood Pressure Position Sitting 10/26/22 14:05 Pulse Oximetry 97 10/26/22 14:05 Oxygen Delivery Method Room Air 10/26/22 14:05 Oxygen Flow Rate 0 10/26/22 14:05 Sign Out <Magali Jung NP - Last Filed: 10/26/22 15:45> Sign Out Data: Sign Out Comment: Here with dysuria and urinary incontinence sent by [facility]. Pending CT abd/Pelvis, Bladder scan and lab results. Last updated by Magali Jung NP at 10/26/22 15:43
[2022-10-26 15:24] LABS: Bilirubin Negative (Negative); Blood Trace-intact (Negative); Clarity Clear (Clear); Glucose Negative (Negative); Ketones Negative (Negative); Leukocyte Esterase Negative (Negative); Nitrite Negative (Negative); Specific Gravity 1.025 (1.005-1.025)
[2022-10-26 15:34] LABS: Bacteria Negative HPF (Negative); C & S Indicated? No; Casts 0-2 Hyaline LPF (Negative); Crystals Negative HPF (Negative); Epithelial Cells Few HPF (Negative); Mucus Negative (Negative); Other Cells Rare Renal (Negative); RBC 0-2 HPF (0-2); WBC Negative HPF (0-5)
--- NOTE | 2022-10-26 15:35 | DI.CT_ITS ---
Exam(s) CT RENAL COLIC WO EXAM: CT RENAL COLIC WO CLINICAL HISTORY: Dysuria, Flank Pain. TECHNIQUE: Imaging Protocol: Axial computed tomography images with coronal and sagittal reformatted images were created and reviewed CONTRAST MATERIAL: Intravenous: none Oral: None COMPARISON: CT CT CHEST/ABD/PEL W from 05/19/2022 FINDINGS: VISUALIZED LUNG BASES: No nodules nor pleural effusions evident. ABDOMEN: There is no ascites. Again noted is evidence of previous gastric surgery, probably bariatric gastric sleeve-type. Missed the mesentery centrally is again noted, unchanged. Prior study with IV contrast did not exhibit find ings of superior mesenteric vein thrombosis. LIVER: There are no obvious focal hepatic lesions evident of this noninfused study. GALLBLADDER/BILIARY: No obvious gallbladder pathology. CBD is not dilated. PANCREAS: No evidence of pancreatic mass nor dilatation of the pancreatic duct. SPLEEN: Spleen is not enlarged. No obvious intrasplenic lesions. ADRENALS: There are no significant adrenal masses. KIDNEYS:No cysts evident. No solid renal masses. No calculi nor hydronephrosis.. Mild perinephric st reaking is again noted around both kidneys, nonspecific. Ureters are not dilated. Urinary bladder i s not distended. ABDOMINAL AORTA: Abdominal aorta is not enlarged. LYMPH NODES: There is no retroperitoneal nor paraaortic adenopathy. ABDOMINAL WALL: Is anterior abdominal mesh noted, partially included in the field of view. GI: There is no evidence of bowel obstruction, free air, nor abscess. PELVIS: LYMPH NODES: There is no intrapelvic nor inguinal adenopathy. GI: No evidence of appendicitis.No evidence of sigmoid diverticulitis. URINARY BLADDER: No obvious findings. Partially obscured by beam hardening artifact from right hip p rosthesis. REPRODUCTIVE: Prostate size upper normal. Seminal vesicles unremarkable. OSSEOUS: New right hip prosthesis not previously present. No fractures. Chronic disc space narrowing L5-S1 level. Mild indentation of superior endplate of L1 , not appearing acute. IMPRESSION: 1. Again noted is evidence of previous bariatric surgery. No evidence of bowel obstruction, free air , nor abscess. 2. Mild indy central mesentery again noted, unchanged. 3. Anterior abdominal wall hernia mesh repair. Only partially included in the field of view due to b latonya habitus. 4. No renal calculi nor hydronephrosis, given the history here. Right hip prosthesis which was not previously present on CT scan 05/19/2022. Called by myself to ER provider. RADIATION DOSE DELIVERED: 1,337.19mGy.cm Total DLP DATA REPOSITORY: All CT scans at this facility are submitted to the National Radiology Data Registry (NRDR) Dose Index Registry (DIR) with the [employer] (A[employer]). RADIATION OPTIMIZATION: All CT scans at this facility use at least one of these dose optimization te chniques: automated exposure control; mA and/or kV adjustment per patient size (includes targeted exa ms where dose is matched to clinical indication); or iterative reconstruction.
[2022-10-26 15:40] LABS: Absolute Basophil Count 0.03 10^3/uL (0.0-0.2); Absolute Lymphocyte Count 0.64 10^3/uL (1.2-3.4); Absolute Monocyte Count 1.43 10^3/uL (0.1-0.8); Absolute Neutrophil Count 10.42 10^3/uL (1.2-6.7); Basophils % 0.2; HCT 32.8 % (40.0-50.0); HGB 11.4 g/dL (13.5-17.5); Immature Grans % 0.8; Lymphocytes % 5.1; MCH 28.3 pg (27.0-33.0); MCHC 34.8 % (32.0-36.0); MCV 81 fL (80-95); MPV 10.6 fL (8.0-11.0); Monocytes % 11.3; Neutrophils % 82.6; Platelet Count 134 10^3/uL (130-400); RBC 4.03 10^6/uL (4.36-5.78); RDW 13.4 % (11.8-14.1); RDW-SD 39.8 fL; WBC 12.62 10^3/uL (4.4-10.8)
[2022-10-26 15:52] LABS: ALT 32 U/L (16-63); AST 17 U/L (15-37); Albumin 3.3 g/dL (3.4-5.0); Alkaline Phosphatase 66 U/L (46-116); Anion Gap 7.7 mmol/L (3-11); BUN 24 mg/dL (7-18); Bilirubin, Total 0.8 mg/dL (0.2-1.0); CO2 26.3 mmol/L (21.0-32.0); CREATININE 1.4 mg/dL (0.70-1.30); Calcium 8.8 mg/dL (8.5-10.1); Chloride 95 mmol/L (98-107); Estimated GFR 55.78 (mL/min/1.73m2); Glucose 203 mg/dL (74-106); Potassium 3.5 mmol/L (3.5-5.1); Sodium 129 mmol/L (136-145); Total Protein 7.3 g/dL (6.4-8.2)
[2022-10-26 15:56] VITALS: BP 126/62; PULSE 73; RESP 18; TEMP 38.5; O2SAT 94
[2022-10-26 16:45] VITALS: BP 122/62; PULSE 81; RESP 18; TEMP 38.1; O2SAT 97
[2022-10-26] MEDS: cefTRIAXone 1 GM/50 ML BAG IVPB (16:50)
[2022-10-26] MEDS: Fosfomycin Tromethamine 3 GM PACKET PO (17:21)
[2022-10-26] MEDS: Phenazopyridine 200 MG TAB PO (17:21)
== END 2022-10-26 17:53 | disposition home or self-care (01) ==
PROVIDERS: Registered Nurse Emergency; Emergency Provider Nurse Practitioner Acute Care; PCP Internal Medicine
DX: N30.90 Cystitis, unspecified without hematuria (principal); I10 Essential (primary) hypertension; D72.829 Elevated white blood cell count, unspecified; E66.9 Obesity, unspecified; E11.9 Type 2 diabetes mellitus without complications; Z79.84 Long term (current) use of oral hypoglycemic drugs
CPT/HCPCS: 80053; 96365; 99284; 74176; 81003; 81015; 85025; J0696; J3490

== ENCOUNTER 2022-10-26 14:02 | Outpatient (REF) | payer MEDICARE, SELFPAY | END 2022-10-26 14:03 | disposition home or self-care (01) | LOC: NCHCN 14:02 | PROVIDERS: PCP Internal Medicine; Visit Provider Nurse Practitioner Family | DX: R30.0 Dysuria (principal); R10.32 Left lower quadrant pain | CPT/HCPCS: 87086 ==

== ENCOUNTER 2022-12-25 16:00 | Outpatient (REF) | payer MEDICARE, SELFPAY ==
[2022-12-25 16:29] LABS: Anion Gap 9.9 mmol/L (3-11); BUN 24 mg/dL (7-18); CO2 27.1 mmol/L (21.0-32.0); CREATININE 1.2 mg/dL (0.70-1.30); Calcium 9.4 mg/dL (8.5-10.1); Chloride 101 mmol/L (98-107); Estimated GFR 67.11 (mL/min/1.73m2); Glucose 139 mg/dL (74-106); Potassium 4.3 mmol/L (3.5-5.1); Sodium 138 mmol/L (136-145)
[2022-12-26 18:42] LABS: PSA, Screening 1.7 ng/mL (<=4.5)
== END 2022-12-25 16:01 | disposition home or self-care (01) ==
LOC: NCHCN 16:00
PROVIDERS: PCP Internal Medicine; Visit Provider Internal Medicine
DX: E11.9 Type 2 diabetes mellitus without complications (principal); N40.0 Benign prostatic hyperplasia without lower urinary tract symptoms; Z12.5 Encounter for screening for malignant neoplasm of prostate
CPT/HCPCS: 80048; 84153

== ENCOUNTER 2023-06-05 15:32 | Outpatient (REF) | payer MEDICARE, SELFPAY ==
[2023-06-05 17:30] LABS: Calculated LDL 61 mg/dL (<100); Cholesterol 126 mg/dL (<200); HDL Cholesterol 42 mg/dL (40-60); Triglyceride 116 mg/dL (<150)
== END 2023-06-05 15:33 | disposition home or self-care (01) ==
LOC: NCHCN 15:32
PROVIDERS: PCP Internal Medicine; Visit Provider Family Medicine
DX: E11.9 Type 2 diabetes mellitus without complications (principal)
CPT/HCPCS: 80061

== ENCOUNTER 2023-10-04 17:32 | Outpatient (REF) | payer MEDICARE, SELFPAY ==
[2023-10-04 15:26] LABS: Abs Immature Grans 0.01 10^3/uL (0.0-0.06); Absolute Basophil Count 0.04 10^3/uL (0.0-0.2); Absolute Eosinophil Count 0.23 10^3/uL (0.0-0.7); Absolute Lymphocyte Count 1.57 10^3/uL (1.2-3.4); Absolute Monocyte Count 0.57 10^3/uL (0.1-0.8); Absolute Neutrophil Count 2.83 10^3/uL (1.2-6.7); Basophils % 0.8; Eosinophils % 4.4; HCT 33.7 % (40.0-50.0); HGB 11.8 g/dL (13.5-17.5); Immature Grans % 0.2; Lymphocytes % 29.9; MCH 28.9 pg (27.0-33.0); MCV 83 fL (80-95); MPV 10.7 fL (8.0-11.0); Monocytes % 10.9; Neutrophils % 53.8; Platelet Count 185 10^3/uL (130-400); RBC 4.08 10^6/uL (4.36-5.78); RDW 12.5 % (11.8-14.1); RDW-SD 37.9 fL; WBC 5.25 10^3/uL (4.4-10.8)
[2023-10-04 15:34] LABS: ALT 29 U/L (16-63); AST 28 U/L (15-37); Alkaline Phosphatase 62 U/L (46-116); Anion Gap 11.4 mmol/L (3-11); BUN 34 mg/dL (7-18); Bilirubin, Total 0.5 mg/dL (0.2-1.0); CO2 24.6 mmol/L (21.0-32.0); CREATININE 1.5 mg/dL (0.70-1.30); Calcium 8.8 mg/dL (8.5-10.1); Chloride 104 mmol/L (98-107); Estimated GFR 51.03 (mL/min/1.73m2); Glucose 118 mg/dL (74-106); Lipase 63 U/L (16-77); Sodium 140 mmol/L (136-145); Total Protein 7.1 g/dL (6.4-8.2)
== END 2023-10-04 17:33 | disposition home or self-care (01) ==
LOC: NCHCN 17:32
PROVIDERS: PCP Family Medicine; Visit Provider Family Medicine
DX: R10.12 Left upper quadrant pain (principal); R10.32 Left lower quadrant pain; E11.9 Type 2 diabetes mellitus without complications
CPT/HCPCS: 80053; 83690; 85025

== ENCOUNTER → 2023-10-16 01:51 | Outpatient (CLI) | payer MEDICARE, SELFPAY ==
--- NOTE | 2023-10-16 | DI.CT_ITS ---
Exam(s) CT ABDOMEN PELVIS W EXAM: CT ABDOMEN PELVIS W CLINICAL HISTORY: LEFT SIDED ABD PAIN R10.9 TECHNIQUE: Imaging Protocol: Axial computed tomography images with coronal and sagittal reformatted images were created and reviewed. CONTRAST MATERIAL: Intravenous: Omnipaque 350 Contrast volume:100 mL Oral: Yes COMPARISON: CT CT CHEST/ABD/PEL W from 05/19/[address] RENAL COLIC WO from 10/26/2022 FINDINGS: ABDOMEN: Lung Bases: Normal where visualized. Liver: Normal density. No measurable mass. Portal, Superior Mesenteric, and Splenic Veins: Unremarkable. Gallbladder and Biliary Tract: No radiodense calculus or dilation. Pancreas: Normal density, no abnormal calcifications or inflammatory process. Spleen: Normal. Adrenals: No masses seen. Kidneys: Normal size, contour and axis. No radiodense stones or obstructive uropathy. No masses seen. Abdominal Aorta: Abdominal portion non-dilated. Atherosclerotic calcification of the abdominal aorta. Bowel: No obstruction or bowel wall thickening. Appendix is unremarkable. There are few diverticula s een in the colon but no evidence of acute diverticulitis. The stomach is incompletely distended limi ting evaluation. Postsurgical changes of prior gastric surgery. Peritoneal Cavity: No ascites, collection or mesenteric inflammatory response. No free air. Lymph Nodes: Within normal limits. Bones: Within normal limits for the patient's age. The patient has a right total hip replacement. Soft Tissues: There again seen postsurgical changes in the anterior abdominal wall with a mesh in mike ce. PELVIS: Bladder: Symmetric distention, no gross wall thickening. Reproductive Organs: Unremarkable as visualized. Lymph Nodes: Within normal limits. Bones: Within normal limits for the patient's age. IMPRESSION: 1. No acute abdominal or pelvic process. 2. Mild colonic diverticulosis without evidence of acute diverticulitis. RADIATION DOSE DELIVERED: Total DLP DATA REPOSITORY: All CT scans at this facility are submitted to the National Radiology Data Registry (NRDR) Dose Index Registry (DIR) with the [employer] (ACR). RADIATION OPTIMIZATION: All CT scans at this facility use at least one of these dose optimization te chniques: automated exposure control; mA and/or kV adjustment per patient size (includes targeted exa ms where dose is matched to clinical indication); or iterative reconstruction.
[2023-10-16] MEDS: Omnipaque 350 MG/ML 500 ML BTL-Imaging package 100 ML IJ (14:39)
[2023-10-16] MEDS: Normal Saline - Diluent 50 ML VIAL IJ (14:39)
== END ==
PROVIDERS: PCP Family Medicine; Visit Provider Family Medicine
DX: R10.9 Unspecified abdominal pain (principal)
CPT/HCPCS: 74177

== ENCOUNTER 2024-02-21 21:48 | Outpatient (REF) | payer MEDICARE, SELFPAY ==
[2024-02-21 22:15] LABS: COMMENT (LAB VIEW ONLY) 102.45 mg/dL; Microalb ug/mg Crea 4.1 ug/mg Cr
== END 2024-02-21 21:49 | disposition home or self-care (01) ==
LOC: NCHCN 21:48
PROVIDERS: PCP Family Medicine; Visit Provider Family Medicine
DX: E11.9 Type 2 diabetes mellitus without complications (principal)
CPT/HCPCS: 82043; 82570

== ENCOUNTER 2024-09-10 16:06 | Outpatient (REF) | payer MEDICARE, SELFPAY ==
[2024-09-10 20:50] LABS: Abs Immature Grans 0.01 10^3/uL (0.0-0.06); Absolute Basophil Count 0.06 10^3/uL (0.0-0.2); Absolute Eosinophil Count 0.28 10^3/uL (0.0-0.7); Absolute Lymphocyte Count 2.13 10^3/uL (1.2-3.4); Absolute Monocyte Count 0.56 10^3/uL (0.1-0.8); Absolute Neutrophil Count 3.72 10^3/uL (1.2-6.7); Basophils % 0.9 %; Eosinophils % 4.1 %; HCT 35.8 % (40.0-50.0); HGB 12.3 g/dL (13.5-17.5); Immature Grans % 0.1 %; Lymphocytes % 31.5 %; MCH 28.3 pg (27.0-33.0); MCHC 34.4 % (32.0-36.0); MCV 82 fL (80-95); MPV 10.6 fL (8.0-11.0); Monocytes % 8.3 %; Neutrophils % 55.1 %; Platelet Count 191 10^3/uL (130-400); RBC 4.35 10^6/uL (4.36-5.78); RDW 12.7 % (11.8-14.1); RDW-SD 38.2 fL; WBC 6.76 10^3/uL (4.4-10.8)
[2024-09-10 21:01] LABS: Iron 67 ug/dL (65-175); Total Iron Binding Capacity 377 ug/dL (250-450)
[2024-09-10 21:26] LABS: ALT 33 U/L (16-63); AST 23 U/L (15-37); Albumin 4.4 g/dL (3.4-5.0); Alkaline Phosphatase 64 U/L (46-116); Anion Gap 9.9 mmol/L (3-11); BUN 24 mg/dL (7-18); Bilirubin, Total 0.35 mg/dL (0.2-1.0); CO2 27.1 mmol/L (21.0-32.0); CREATININE 1.5 mg/dL (0.70-1.30); Calcium 9.2 mg/dL (8.5-10.1); Chloride 103 mmol/L (98-107); Estimated GFR 50.71 (mL/min/1.73m2); Ferritin 33 ng/mL (26-388); Glucose 111 mg/dL (74-106); Potassium 4.4 mmol/L (3.5-5.1); Sodium 140 mmol/L (136-145); Total Protein 7.5 g/dL (6.4-8.2); Vitamin B12 257 pg/mL (193-986)
== END 2024-09-10 16:07 | disposition home or self-care (01) ==
LOC: NCHCN 16:06
PROVIDERS: PCP Family Medicine; Visit Provider Family Medicine
DX: D64.9 Anemia, unspecified (principal); I10 Essential (primary) hypertension
CPT/HCPCS: 80053; 82607; 82728; 83540; 83550; 85025

== ENCOUNTER 2024-12-25 10:17 | Outpatient (CLI) | payer MEDICARE, SELFPAY ==
--- NOTE | 2024-12-25 09:15 | DI.RAD_ITS ---
Exam(s) XR WRIST LT COMPLETE EXAM: XR WRIST LT COMPLETE CLINICAL HISTORY: eval L wrist pain. TECHNIQUE: 2D digital imaging was performed of the left wrist. Three images were obtained. PA, obl ique and lateral views were obtained. COMPARISON: CR XR WRIST LT COMPLETE from 05/18/2017 FINDINGS: BONES: No acute fracture is present. No bony destructive lesion is seen. JOINTS: There is marked narrowing of the radio scaphoid joint with [id number]. There is widening o f the scapholunate distance suggesting ligament tear. Arthritic changes are seen in the lateral radi ocarpal joint. The joint spaces are otherwise well maintained. There is been progression of these c hanges since examination from 2017. Degenerative changes are also seen in the visualized interphalang eal joints of the hand. SOFT TISSUE: Dystrophic calcifications are seen lateral to the radiocarpal joint. Atherosclerotic ca lcifications are present. Well corticated osseous densities are seen at the dorsum of the wrist. IMPRESSION: Marked osteoarthritis of the wrist particularly at the radiocarpal joint. DATA REPOSITORY: RADIATION DOSE DELIVERED:
--- NOTE | 2024-12-25 09:15 | DI.RAD_ITS ---
Exam(s) XR CERVICAL SPINE COMP 4-5V EXAM: XR CERVICAL SPINE COMP 4-5V CLINICAL HISTORY: eval L cervical radiculopathy, C6/C7?. TECHNIQUE: 2D digital imaging was performed. Five images were obtained. AP, odontoid, lateral and bi lateral oblique images were obtained. COMPARISON: CR XR CERVICAL SPINE COMP 4-5V from 04/14/2020 FINDINGS: The odontoid is intact. The lateral masses are well aligned. There is persistent 2-3 mm retrolisthes is of C5 on C6. There is disc space narrowing seen at C5-6 and C6-C7. Anterior osteophytes are seen from C4-5 through C6-C7. No acute fracture or subluxation is present. On the right side, there is mod erate neural foraminal stenosis at C5-C6. On the left side, there is moderate neural foraminal steno sis at C6-7 and mild neural foraminal stenosis at C4-5 and C5-C6. The cervical thoracic junction is w ell maintained. The prevertebral soft tissues are unremarkable. Lung apices are clear. IMPRESSION: Moderate cervical spondylosis with neural foraminal stenosis as described above. DATA REPOSITORY: RADIATION DOSE DELIVERED:
--- NOTE | 2024-12-25 09:15 | DI.RAD_ITS ---
Exam(s) XR ELBOW LT COMPLETE EXAM: XR ELBOW LT COMPLETE CLINICAL HISTORY: L elbow pain. TECHNIQUE: 2D digital imaging was performed of the left elbow. Three images were obtained. AP, lat eral and oblique views were obtained. COMPARISON: No exams were available for comparison FINDINGS: BONES: No acute fracture is present. No bony destructive lesion is seen. JOINTS: The elbow is normally aligned. No joint effusion is seen. SOFT TISSUE: There is a small nonspecific soft tissue calcification adjacent to the lateral aspect of the radial head which is nonspecific. IMPRESSION: No acute abnormalities identified. No joint effusion is seen. DATA REPOSITORY: RADIATION DOSE DELIVERED:
== END 2024-12-25 10:18 | disposition home or self-care (01) ==
LOC: DIORS 10:18
PROVIDERS: PCP Family Medicine; Referring Provider Family Medicine; Visit Provider Student in an Organized Health Care Education/Training Program
DX: M25.532 Pain in left wrist (principal); M54.12 Radiculopathy, cervical region; M25.522 Pain in left elbow; M19.032 Primary osteoarthritis, left wrist
CPT/HCPCS: 99214; 20605; J1010; 72050; 73080; 73110

== ENCOUNTER 2025-01-20 01:54 | Outpatient (CLI) | payer MEDICARE, SELFPAY ==
--- NOTE | 2025-01-20 05:45 | DI.MRI_ITS ---
Exam(s) MR CERVICAL SPINE WO EXAM: MR CERVICAL SPINE WO CLINICAL HISTORY: PAIN,lt cervical radiculopathy,m54.12 TECHNIQUE: Multiplanar multisequence MRI of the cervical spine was performed without intravenous contrast. COMPARISON: CR XR CERVICAL SPINE COMP 4-5V from 12/25/2024 FINDINGS: BONES: Vertebral body heights are maintained. Alignment is normal. Bone marrow signal intensity is within normal limits. CERVICAL CORD: Craniovertebral junction is unremarkable. The cervical cord is normal size and signal intensity. SOFT TISSUES: Unremarkable. C2-3: No disc herniation or bulge is identified. No evidence of neural foraminal narrowing. No significant central canal stenosis. C3-4: Mild disc bulging and small endplate osteophytes. No disc herniation . No evidence of neural foraminal narrowing. No significant central canal stenosis. C4-5: Mild disc bulging and small endplate osteophytes. No disc herniation identified. Leftneural foraminal narrowing. No significant central canal stenosis. C5-6: Severe loss of disc height and prominent circumferentially projecting osteophytes. Mild central canal stenosis. Moderate bilateral neural foraminal narrowing. C6-7: Severe loss of disc height and prominent circumferentially projecting osteophytes. Severe left neural foraminal narrowing.. Mild central canal stenosis. C7-T1: No disc herniation or bulge is identified. No evidence of neural foraminal narrowing. No significant central canal stenosis. IMPRESSION: Advanced degenerative disc changes at C5-6 and C6-7 cause bilateral neural foraminal narrowing at C5-6 and severe left neural foraminal narrowing at C6-7. Mild central canal stenosis at both levels. DATA REPOSITORY:
== END 2025-01-20 02:14 ==
PROVIDERS: PCP Family Medicine; Visit Provider Student in an Organized Health Care Education/Training Program
DX: M50.022 Cervical disc disorder at C5-C6 level with myelopathy (principal); M50.023 Cervical disc disorder at C6-C7 level with myelopathy
CPT/HCPCS: 72141

== ENCOUNTER 2025-03-16 16:10 | Outpatient (REF) | payer MEDICARE, SELFPAY ==
[2025-03-16 16:52] LABS: COMMENT (LAB VIEW ONLY) 95.80 mg/dL; Microalb ug/mg Crea 4.3 ug/mg Cr
== END 2025-03-16 16:11 | disposition home or self-care (01) ==
LOC: NCHCN 16:10
PROVIDERS: PCP Family Medicine; Visit Provider Family Medicine
DX: E11.9 Type 2 diabetes mellitus without complications (principal)
CPT/HCPCS: 82043; 82570

== ENCOUNTER 2025-07-06 12:19 | Outpatient (REF) | payer MEDICARE, SELFPAY | END 2025-07-06 12:20 | disposition home or self-care (01) | LOC: NCHCN 12:19 | PROVIDERS: PCP Family Medicine; Visit Provider Family Medicine | DX: E11.9 Type 2 diabetes mellitus without complications (principal) | CPT/HCPCS: 82043; 82570 ==